=== PATIENT | female | born 1965 | race Caucasian/White ===

== ENCOUNTER 2020-07-04 15:50 | Emergency (ER) | payer MEDICARE, MEDICAID, SELFPAY ==
[2020-07-04 15:59] VITALS: BP 132/65; PULSE 69; RESP 18; TEMP 36.9; O2SAT 96; BMI 25.6
--- NOTE | 2020-07-04 17:29 | W.ED.BACK ---
HPI - Back Pain/Injury General: Chief Complaint: Back Pain/Injury Stated Complaint: hip pain/ neck pain needs pain management Time Seen by Provider: 07/04/20 17:00 History of Present Illness: HPI Narrative: 54-year-old female patient presents to the emergency department with longstanding history of chronic back pain. She reports 2 weeks ago, receives lumbar spinal injection for back pain. She states lidocaine injection was not effective. Reports pain has continued. States out of tramadol, hydrocodone 10/325 and diazepam. She is under the care of Dr. Najera in [place]. She states attempted to contact him this morning, states he was out of town and not able to prescribe her needed medication. She denies change in pain. Reports pain has continued. Has attempted [id number] Tylenol, [id number] pain patches, warm moist heat, cool compresses and rest. She denies urinary/bowel incontinence. Reports symptoms of left lower extremity radiculopathy. She has not fell, has not sustained recent injury. Pain has not changed. She denies fever or chills. MD elicited complaint: back pain Pertinent past history: prior back pain Onset (ago): year(s) Timing: intermittent and progressively worsening Severity: moderate Similar Symptoms Previously: Yes Quality: sharp, aching and spasming Location: lumbar spine, sacrum and left lower back Radiation: left upper leg and left leg below the knee Exacerbating factors: movement, walking and lifting Relieving factors: other (rest) Associated symptoms: Reports difficulty walking (due to left posterior hip pain); Deny abdominal pain, chills, dysuria, fever(s), nausea or vomiting Treatments prior to arrival: cold therapy, heat therapy and acetaminophen Review of Systems General: Reports: 10 or more systems reviewed and unremarkable except in HPI and below Const: Denies: fever(s), chills or diaphoresis Eyes: Denies: blurry vision or eye redness ENMT: Denies: throat pain, dental pain or disequilibrium Card: Denies: chest pain, palpitations or irregular heart rhythm Resp: Denies: dyspnea, productive cough, non-productive cough or wheezing GI: Denies: abdominal pain, nausea or vomiting : Denies: difficulty voiding or dysuria Musc: Reports: limited range of motion (lower back); Denies: neck pain, back pain, joint pain or muscle weakness Skin/Breast: Denies: rash or pruritus Neuro: Reports: difficulty walking (due to left posterior hip pain); Denies: headache(s), weakness in extremities or behavioral changes Psych: Denies: anxiety or depression Ady/Lymph: Denies: easy bruising Physical Exam Const: COMMON NORMALS: no acute distress, patient oriented x3, healthy appearing and alert GENERAL APPEARANCE: cooperative, comfortable and well hydrated HENMT: COMMON NORMALS: normocephalic, Normal external nose present and moist oral mucous membranes HEAD & SCALP: normocephalic NOSE: Normal external nose present Eye: COMMON NORMALS: Equal, round and reactive pupils present and EOMs intact bilaterally GENERAL EYE: appearance normal, both eyes and all related structures PUPIL: Yes Equal, round and reactive pupils present Neck/C-Spine: COMMON NORMALS: full ROM and no lymphadenopathy GENERAL: Yes normal visual inspection and Yes trachea midline CERVICAL SPINE: Yes cervical ROM normal Lymph: LYMPHATIC: no lymphadenopathy noted Chest: COMMONS NORMALS: normal inspection of the chest Resp: COMMON NORMALS: normal respiratory effort and clear to auscultation bilaterally AUSCULTATION: clear to auscultation bilaterally Cardio: COMMON NORMALS: regular rhythm, S1 normal heart sound present, S2 normal heart sound present and Peripheral pulses 2+ throughout RHYTHM: regular rhythm HEART SOUNDS: S1 normal heart sound present and S2 normal heart sound present PERIPHERAL PULSES: Peripheral pulses 2+ throughout GI: COMMON NORMALS: Soft to palpation and non-tender INSPECTION: Yes normal to inspection PALPATION: Yes Soft to palpation : COMMON NORMALS: Yes no CVA tenderness BLADDER/KIDNEY EXAM: Yes no CVA tenderness Back/Pelvis: COMMON NORMALS: no CVA tenderness, thoracic and lumbar spine normal to inspection and no thoracic nor lumbar tenderness (midline) THORACIC SPINE/UPPER BACK: Yes normal to inspection, Yes thoracic ROM normal, No pain with ROM and No thoracic spinal tenderness LUMBAR SPINE/LOWER BACK: Yes normal to inspection, No lumbar spinal tenderness, Yes paraspinal muscle spasm Lumbar paraspinal muscle spasm: left, No mass present, Yes straight leg raise positive left and Yes other soft tissue findings (skin without discoloration/erythema or SQ inflammation of the thoracic/lumbar spine) PELVIS: Yes buttocks normal and Yes Other pelvic findings (Patient sitting in bed with visual lumbar rotation right to left as she was retrieving paperwork.) SACROILIAC JOINTS: Yes SI joint(s) abnormal SI joint details: tender to palpation, pain elicited by compression of iliac crest maneuver (left) and pain elicited by passive hyperextension of lower extremity SACRUM: no ecchymosis COCCYX: no swelling and Other pelvic findings (Patient sitting in bed with visual lumbar rotation right to left as she was retrieving paperwork.) Extremity: COMMON NORMALS: normal to inspection and capillary refill normal Neuro: TAVO COMA SCALE: document GCS findings [place] coma scale eye opening: Spontaneous Tavo coma scale verbal response: Orientated Tavo coma scale motor response: Obey commands [place] coma scale total score: 15 COMMON NORMALS: patient oriented x3 and no focal motor deficits SENSORIUM/ORIENTATION: Yes alert SPEECH: speech normal MONOFILAMENT EXAM PERFORMED: Yes Monofilament Exam (small fiber function): L 1st metatarsals: normal, Left 3rd metatarsals monofilament exam: normal, L 5th metatarsals: normal, R 1st metatarsals: normal, R 3rd metatarsals: normal and R 5th metatarsals: normal MOTOR EXAM: Abnormal motor strength present (5/5 RLE; 4/5 LLE (limited due to reproduction of pain to the left posterior SI joint)) Psych: COMMON NORMALS: mental status grossly normal, Normal thought process present and cooperative ACTIVITY/MOTOR BEHAVIOR: Yes appropriate eye contact THOUGHT PROCESS: Normal thought process present Skin: COMMON NORMALS: no rashes or lesions noted and turgor normal GENERAL SKIN EXAM: no rashes or lesions noted and turgor normal Course ED course: Case discussed with Dr. Dillon, advised limited amount of hydrocodone, #7, signed prescription provided. MRI reviewed from 01/02/2020 with degenerative disc disease and spondylosis. L4-L5 central zone disc protrusion and facet joint arthropathy, moderate vertebral canal and lateral recess stenosis, effacement of bilateral L5 nerve roots. L5-S1 moderate left neural foraminal stenosis, hypertrophic facet arthropathy lumbar spine most predominant at L5-S1 and L5-S1. [facility] report from [facility]. Patient reports able to contact Dr. Najera on Tuesday for needed refill of medication. She was advised to return to the emergency department if she developed fever, inability to feel her legs, bowel or bladder incontinence or other worsening symptoms. Verbalized understanding. Agrees to follow-up and to return if concerning symptoms occur. Vital Signs: Vital signs: Vital Signs Temperature 98.4 F 07/04/20 15:59 Pulse Rate 69 07/04/20 15:59 Respiratory Rate 18 07/04/20 15:59 Blood Pressure 132/65 07/04/20 15:59 Pulse Oximetry 96 07/04/20 15:59 Discharge Plan Discharge Patient Disposition: Home Clinical Impression: Lumbar radiculopathy Strain of lumbar region Qualifiers: Encounter type: initial encounter Qualified Code(s): S39.012A - Strain of muscle, fascia and tendon of lower back, initial encounter Chronic lumbar pain Qualifiers: Back pain laterality: left Sciatica presence: with sciatica Sciatica laterality: sciatica of left side Qualified Code(s): M54.42 - Lumbago with sciatica, left side Condition: Stable Prescriptions: New Medrol (Chema) 4 mg tablets,dose pack See Rx Instructions .ROUTE .COMPLEX Qty: 21 RF: 0 cyclobenzaprine 10 mg tablet 10 mg PO TID PRN (Reason: muscle spasm) Qty: 20 RF: 0 Lidoderm 5 % adhesive patch,medicated 1 patch TOPICAL Q24H Qty: 30 RF: 0 hydrocodone-acetaminophen 5-325 mg tablet 1 tab PO TID PRN (Reason: pain) Qty: 7 RF: 0 No Action Tylenol 325 mg Tablet 325 - 650 mg PO Q4H PRN (Reason: Pain) RF: 0 clonazepam 0.5 mg tablet 0.5 mg PO DAILY RF: 0 tramadol 50 mg tablet 50 mg PO Q4H PRN (Reason: Pain) RF: 0 citalopram 20 mg tablet 20 mg PO DAILY RF: 0 ibuprofen 200 mg Tablet 200 - 400 mg PO Q4H PRN (Reason: Pain) RF: 0 Excedrin Extra Strength 250-250-65 mg Tablet 1 - 2 tab PO Q4H PRN (Reason: Pain) RF: 0 levocetirizine 5 mg tablet 5 mg PO DAILY RF: 0 Discharge Orders: Discharge Order (Routine); Ordered 07/04/20 Ordered By: Lupe Peck Referrals: Reji Gutierrez MD [Physician] - Discharge Diet: Usual diet Discharge Activity: Limit activity as instructed Patient Instructions: Sciatica (ED), Lumbar Radiculopathy (ED), Chronic Back Pain (ED) Activity Restrictions/Additional Instructions: Cool compresses alternate with warm moist heat as needed for pain, apply to the affected area Call your doctor on Tuesday for continuation of pain medication. The emergency department will not be able to refill controlled substances for chronic pain. Return to the emergency department if you develop bowel or bladder incontinence, inability to feel your left leg, or falls due to bilateral leg weakness Avoid twisting or bending, do not lift over 10 pounds until released by your primary care/back specialist Take medication as prescribed Discharge Date/Time: 07/04/20 18:03 Coding Level of Care Code ED German Teacher for Jerry Kerr
[2020-07-04] MEDS: ketorolac 60 mg/2 mL INJ IM (17:58)
== END 2020-07-04 18:03 | disposition home or self-care (01) ==
PROVIDERS: Absent Provider Neurological Surgery; Emergency Provider Nurse Practitioner Family; PCP Family Medicine
DX: S39.012A Strain of muscle, fascia and tendon of lower back, initial encounter (principal); M54.16 Radiculopathy, lumbar region; G89.29 Other chronic pain; M54.42 Lumbago with sciatica, left side; X58.XXXA Exposure to other specified factors, initial encounter
CPT/HCPCS: 12345; 96372; 99281; 99283; J1885

== ENCOUNTER → 2020-07-10 10:02 | Outpatient (BNVA) | payer MEDICARE, MEDICAID, SELFPAY | PROVIDERS: Family Provider Family Medicine; PCP Family Medicine; Referring Provider Family Medicine; Visit Provider Anesthesiology Pain Medicine | DX: G89.29 Other chronic pain (principal); M54.12 Radiculopathy, cervical region; M54.42 Lumbago with sciatica, left side; F17.210 Nicotine dependence, cigarettes, uncomplicated | CPT/HCPCS: 99203 ==

== ENCOUNTER 2020-09-27 04:01 | Emergency (ER) | payer MEDICARE, MEDICAID, SELFPAY ==
[2020-09-27 04:04] VITALS: BP 158/87; PULSE 63; RESP 18; TEMP 36.7; O2SAT 100; BMI 22.8
--- NOTE | 2020-09-27 04:16 | ED_ITS ---
HPI - Back Pain/Injury General: Chief Complaint: Back Pain/Injury Stated Complaint: lower back pain Time Seen by Provider: 09/27/20 04:03 Source: patient Mode of arrival: ambulatory Limitations: no limitations History of Present Illness: HPI Narrative: 55-year-old female who has a history of chronic back pain. She states that she had an MRI recently showed degenerative disc disease in her lower back. She states that tonight she was not able to stand her pain. States pain is a 9 out of 10 and radiates down her left leg. She denies any bowel or bladder incontinence. She states she has an appointment with a spine surgeon in early October. Denies any worsening improving factors. MD elicited complaint: back pain Pertinent past history: prior back pain Associated symptoms: Deny abdominal pain, chills, dysuria, fever(s), nausea or vomiting Review of Systems Const: Denies: fever(s), chills, body aches or change in appetite Eyes: Denies: blurry vision or eye discomfort ENMT: Denies: throat pain or dental pain Card: Denies: chest pain Resp: Denies: dyspnea GI: Denies: abdominal pain, nausea, vomiting or diarrhea : Denies: dysuria Musc: Reports: back pain Skin/Breast: Denies: rash Neuro: Denies: headache(s) Psych: Denies: depression Ady/Lymph: Denies: easy bruising All/Imm: Denies: urticaria PFSH ED PFSH: Social History Smoking and tobacco status: current every day smoker cigarettes Alcohol intake: never Caregiver/support person: Yes Lives independently: Yes Household members: spouse Housing: House Physical Exam Const: COMMON NORMALS: no acute distress, patient oriented x3 and healthy appearing HENMT: COMMON NORMALS: normocephalic and atraumatic HEAD & SCALP: normocephalic and atraumatic Eye: COMMON NORMALS: Equal, round and reactive pupils present and EOMs intact bilaterally PUPIL: Yes Equal, round and reactive pupils present Neck/C-Spine: COMMON NORMALS: full ROM and supple Chest: COMMONS NORMALS: normal inspection of the chest and normal palpation of entire chest wall Resp: COMMON NORMALS: normal respiratory effort, No retractions, No use of accessory muscles and clear to auscultation bilaterally AUSCULTATION: clear to auscultation bilaterally Cardio: COMMON NORMALS: regular rate, regular rhythm and No murmurs present (Cardio) RATE: regular rate RHYTHM: regular rhythm GI: COMMON NORMALS: Normal to inspection, nondistended, normoactive bowel sounds present, Soft to palpation, non-tender and no masses PALPATION: Yes Soft to palpation Back/Pelvis: OTHER: Left lower back tenderness no midline tenderness no saddle anesthesia 5 out of 5 strength of bilateral lower extremities Extremity: COMMON NORMALS: normal to inspection and full ROM Neuro: COMMON NORMALS: patient oriented x3, moves all extremities and no focal motor deficits Psych: COMMON NORMALS: mental status grossly normal, Normal thought process present and cooperative THOUGHT PROCESS: Normal thought process present Skin: COMMON NORMALS: no rashes or lesions noted and no wounds GENERAL SKIN EXAM: no rashes or lesions noted Course Vital Signs: Vital signs: Vital Signs Temperature 98.1 F 09/27/20 04:04 Pulse Rate 63 09/27/20 04:04 Respiratory Rate 18 09/27/20 04:04 Blood Pressure 158/87 09/27/20 04:04 Pulse Oximetry 100 09/27/20 04:04 MDM - Back Pain/Injury MDM Narrative: Medical decision making narrative: Patient presents here with chronic low back pain. She has no signs of cord compression or epidural abscess. She has no bowel or bladder incontinence and no saddle anesthesia. She feels much improved here after pain meds. We will place her on a Medrol Dosepak and [place]. She has an appointment with pain management in 1 to 2 weeks along with a spine surgeon. She is to follow-up then return if worsening. She understands agrees to plan. Discharge Plan Discharge Patient Disposition: Home Clinical Impression: Chronic low back pain Qualifiers: Back pain laterality: left Sciatica presence: with sciatica Sciatica laterality: sciatica of left side Qualified Code(s): M54.42 - Lumbago with sciatica, left side Condition: Stable Prescriptions: New [place] 5-325 mg tablet 1 tab PO Q6H PRN (Reason: pain) Qty: 14 RF: 0 Medrol (Chema) 4 mg tablets,dose pack See Rx Instructions .ROUTE .COMPLEX Qty: 21 RF: 0 No Action calcium carbonate [Calcium 600] 600 mg calcium (1,500 mg) tablet 600 mg PO BID RF: 0 mecobalamin (vitamin B12) 1,000 mcg tablet,disintegrating 1,000 mcg SUBLINGUAL DAILY RF: 0 Dialyvite Vitamin D3 Max 1,250 mcg (50,000 unit) tablet PO RF: 0 ibuprofen 800 mg tablet 800 mg PO Q8H RF: 0 diphenhydramine HCl [Benadryl Allergy] 25 mg tablet 25 mg PO Q6H PRNRF: 0 acyclovir 400 mg tablet 400 mg PO DAILY RF: 0 ondansetron HCl 4 mg tablet 4 mg PO Q8H RF: 0 cyclobenzaprine 10 mg tablet 10 mg PO TID PRN (Reason: muscle spasm) Qty: 20 RF: 0 Tylenol 325 mg Tablet 325 - 650 mg PO Q4H PRN (Reason: Pain) RF: 0 clonazepam 0.5 mg tablet 0.5 mg PO DAILY RF: 0 tramadol 50 mg tablet 50 mg PO Q4H PRN (Reason: Pain) RF: 0 citalopram 20 mg tablet 20 mg PO DAILY RF: 0 ibuprofen 200 mg Tablet 200 - 400 mg PO Q4H PRN (Reason: Pain) RF: 0 Excedrin Extra Strength 250-250-65 mg Tablet 1 - 2 tab PO Q4H PRN (Reason: Pain) RF: 0 levocetirizine 5 mg tablet 5 mg PO DAILY RF: 0 Lidoderm 5 % adhesive patch,medicated 1 patch TOPICAL Q24H Qty: 30 RF: 0 hydrocodone-acetaminophen 5-325 mg tablet 1 tab PO TID PRN (Reason: pain) Qty: 7 RF: 0 Discharge Orders: Discharge ED (Routine); Ordered 09/27/20 Ordered By: John Galdamez Referrals: Keith Sultana MD [Primary Care Provider] - 1-3 days Discharge Diet: Advance as tolerated Discharge Activity: Resume usual activity Patient Instructions: Acute Low Back Pain (ED) Coding Level of Care Code ED Pediatric Medical Assistant for Jerry Fwd Exam Comprehensive
[2020-09-27] MEDS: dexamethasone 10 mg/mL INJ IM (04:18)
[2020-09-27] MEDS: morphine 4 mg/mL SDV 1 mL IM (04:18)
[2020-09-27] MEDS: HYDROcodone-acetaminophen 5-325 mg Tablet 1 TAB PO (05:08)
[2020-09-27 05:09] VITALS: BP 155/84; PULSE 60; RESP 17; O2SAT 99
== END 2020-09-27 05:09 | disposition home or self-care (01) ==
PROVIDERS: Emergency Provider Emergency Medicine; PCP Family Medicine
DX: M54.42 Lumbago with sciatica, left side (principal); F17.210 Nicotine dependence, cigarettes, uncomplicated
CPT/HCPCS: 12345; 96372; 99281; 99283; J1100; J2270

== ENCOUNTER 2020-10-01 04:36 | Emergency (ER) | payer MEDICARE, MEDICAID, SELFPAY ==
--- NOTE | 2020-10-01 04:46 | ED_ITS ---
HPI - Back Pain/Injury General: Chief Complaint: Back Pain/Injury Stated Complaint: back pain Time Seen by Provider: 10/01/20 04:43 Source: patient Mode of arrival: ambulatory Limitations: no limitations History of Present Illness: HPI Narrative: 55-year-old female has a history of chronic low back pain from degenerative disc disease. Patient has appoint with pain management October 20 states she has had increased pain over the last 2 days. States pain is sharp in nature and rates it a 7 out of 10. Denies any radiation of her pain. Denies any bowel or bladder incontinence. Denies any vomiting. MD elicited complaint: back pain Associated symptoms: Deny abdominal pain, chills, dysuria, fever(s), nausea or vomiting Review of Systems Const: Denies: fever(s), chills, body aches or change in appetite Eyes: Denies: blurry vision or eye discomfort ENMT: Denies: throat pain or dental pain Card: Denies: chest pain Resp: Denies: dyspnea GI: Denies: abdominal pain, nausea, vomiting or diarrhea : Denies: dysuria Musc: Reports: back pain Skin/Breast: Denies: rash Neuro: Denies: headache(s) Psych: Denies: depression Ady/Lymph: Denies: easy bruising All/Imm: Denies: urticaria PFSH ED PFSH: Social History Smoking and tobacco status: current every day smoker cigarettes Alcohol intake: never Caregiver/support person: Yes Lives independently: Yes Household members: spouse Housing: House Physical Exam Const: COMMON NORMALS: no acute distress, patient oriented x3 and healthy appearing HENMT: COMMON NORMALS: normocephalic and atraumatic HEAD & SCALP: normocephalic and atraumatic Eye: COMMON NORMALS: Equal, round and reactive pupils present and EOMs intact bilaterally PUPIL: Yes Equal, round and reactive pupils present Neck/C-Spine: COMMON NORMALS: full ROM and supple Chest: COMMONS NORMALS: normal inspection of the chest and normal palpation of entire chest wall Resp: COMMON NORMALS: normal respiratory effort, No retractions, No use of accessory muscles and clear to auscultation bilaterally AUSCULTATION: clear to auscultation bilaterally Cardio: COMMON NORMALS: regular rate, regular rhythm and No murmurs present (Cardio) RATE: regular rate RHYTHM: regular rhythm GI: COMMON NORMALS: Normal to inspection, nondistended, normoactive bowel sounds present, Soft to palpation, non-tender and no masses PALPATION: Yes Soft to palpation Back/Pelvis: OTHER: Paraspinal low back tenderness with no midline tenderness no saddle anesthesia 5 out of 5 strength bilateral extremities Extremity: COMMON NORMALS: normal to inspection and full ROM Neuro: COMMON NORMALS: patient oriented x3, moves all extremities and no focal motor deficits Psych: COMMON NORMALS: mental status grossly normal, Normal thought process present and cooperative THOUGHT PROCESS: Normal thought process present Skin: COMMON NORMALS: no rashes or lesions noted and no wounds GENERAL SKIN EXAM: no rashes or lesions noted Course Vital Signs: Vital signs: Vital Signs Temperature 97.7 F 10/01/20 04:47 Pulse Rate 66 10/01/20 04:47 Respiratory Rate 18 10/01/20 04:47 Blood Pressure 135/95 10/01/20 04:47 Pulse Oximetry 100 10/01/20 04:47 MDM - Back Pain/Injury MDM Narrative: Medical decision making narrative: Mary presents here with back pain that is chronic in nature. She has no signs of cord compression or epidural abscess. She has had a recent MRI as well. She is to follow-up with spine surgeon as scheduled along with her pain management in 2 weeks. Will prescribe her Naprosyn and Robaxin and she is to return if worsening. She understands agrees to plan. Discharge Plan Discharge Patient Disposition: Home Clinical Impression: Chronic low back pain Qualifiers: Back pain laterality: bilateral Sciatica presence: without sciatica Qualified Code(s): M54.5 - Low back pain Condition: Stable Prescriptions: New Robaxin-750 750 mg tablet 750 mg PO Q6H Qty: 30 RF: 0 Naprosyn 500 mg tablet 500 mg PO BID PRN (Reason: pain) Qty: 20 RF: 0 cyclobenzaprine 10 mg tablet 10 mg PO Q8H PRN (Reason: muscle spasm) Qty: 30 RF: 0 tramadol 50 mg tablet 50 mg PO Q8H PRN (Reason: pain) Qty: 20 RF: 0 No Action calcium carbonate [Calcium 600] 600 mg calcium (1,500 mg) tablet 600 mg PO BID RF: 0 mecobalamin (vitamin B12) 1,000 mcg tablet,disintegrating 1,000 mcg SUBLINGUAL DAILY RF: 0 Dialyvite Vitamin D3 Max 1,250 mcg (50,000 unit) tablet PO RF: 0 ibuprofen 800 mg tablet 800 mg PO Q8H RF: 0 diphenhydramine HCl [Benadryl Allergy] 25 mg tablet 25 mg PO Q6H PRNRF: 0 acyclovir 400 mg tablet 400 mg PO DAILY RF: 0 ondansetron HCl 4 mg tablet 4 mg PO Q8H RF: 0 cyclobenzaprine 10 mg tablet 10 mg PO TID PRN (Reason: muscle spasm) Qty: 20 RF: 0 Tylenol 325 mg Tablet 325 - 650 mg PO Q4H PRN (Reason: Pain) RF: 0 clonazepam 0.5 mg tablet 0.5 mg PO DAILY RF: 0 tramadol 50 mg tablet 50 mg PO Q4H PRN (Reason: Pain) RF: 0 citalopram 20 mg tablet 20 mg PO DAILY RF: 0 ibuprofen 200 mg Tablet 200 - 400 mg PO Q4H PRN (Reason: Pain) RF: 0 Excedrin Extra Strength 250-250-65 mg Tablet 1 - 2 tab PO Q4H PRN (Reason: Pain) RF: 0 levocetirizine 5 mg tablet 5 mg PO DAILY RF: 0 Lidoderm 5 % adhesive patch,medicated 1 patch TOPICAL Q24H Qty: 30 RF: 0 hydrocodone-acetaminophen 5-325 mg tablet 1 tab PO TID PRN (Reason: pain) Qty: 7 RF: 0 [place] 5-325 mg tablet 1 tab PO Q6H PRN (Reason: pain) Qty: 14 RF: 0 Medrol (Chema) 4 mg tablets,dose pack See Rx Instructions .ROUTE .COMPLEX Qty: 21 RF: 0 Discharge Orders: Discharge ED (Routine); Ordered 10/01/20 Ordered By: John Galdamez Referrals: Keith Sultana MD [Primary Care Provider] - 1-3 days Discharge Diet: Advance as tolerated Discharge Activity: Resume usual activity Patient Instructions: Back Pain (ED) Coding Level of Care Code ED Communications Operator for Chg Fwd Exam Comprehensive
[2020-10-01 04:47] VITALS: BP 135/95; PULSE 66; RESP 18; TEMP 36.5; O2SAT 100; BMI 22.8
[2020-10-01] MEDS: ketorolac 30 mg/mL INJ IM (04:55)
[2020-10-01] MEDS: morphine 4 mg/mL SDV 1 mL IM (04:55)
[2020-10-01] MEDS: HYDROcodone-acetaminophen 5-325 mg Tablet 1 TAB PO (05:37)
[2020-10-01] MEDS: cyclobenzaprine 10 mg Tablet PO (05:37)
== END 2020-10-01 05:39 | disposition home or self-care (01) ==
PROVIDERS: Emergency Provider Emergency Medicine; PCP Family Medicine
DX: G89.29 Other chronic pain (principal); M54.5 Low back pain; F17.210 Nicotine dependence, cigarettes, uncomplicated
CPT/HCPCS: 12345; 96372; 99281; 99283; J1885; J2270

== ENCOUNTER 2020-10-04 21:26 | Emergency (ER) | payer MEDICARE, MEDICAID, SELFPAY ==
[2020-10-04 21:50] VITALS: BP 110/52; PULSE 88; RESP 14; TEMP 36.3; O2SAT 97; BMI 21.1
[2020-10-04] MEDS: methylPREDNISolone (DEPO) 80 MG/ML INJ 1 mL IM (22:20)
--- NOTE | 2020-10-05 02:20 | ED_ITS ---
HPI - Back Pain/Injury General: Chief Complaint: Back Pain/Injury Stated Complaint: back pain Time Seen by Provider: 10/04/20 21:58 History of Present Illness: HPI Narrative: Patient coming in requesting pain medication for her back said she like to have steroid. Says she still has some muscle relaxer hydrocodone and tramadol at home. Says she is supposed to see primary care provider on Tuesday. Says she does see Mely Thornton and try to get a referral to the pain management clinic here she does have referral already to pain management clinic in [place] which she supposed to have appointment on the MD elicited complaint: back pain Pertinent past history: prior back pain Onset (ago): year(s) Timing: intermittent Severity: moderate Similar Symptoms Previously: Yes Quality: aching Location: lumbar spine Radiation: right upper leg and right leg below the knee Exacerbating factors: movement Relieving factors: medication Associated symptoms: Reports no associated symptoms; Deny abdominal pain, chills, fever(s), nausea or vomiting Treatments prior to arrival: prescription analgesics Review of Systems Const: Denies: fever(s), chills or body aches Eyes: Denies: change in vision or blurry vision ENMT: Denies: throat pain or nasal congestion Card: Denies: chest pain or dyspnea on exertion Resp: Denies: dyspnea, productive cough or non-productive cough GI: Denies: abdominal pain, nausea or vomiting Musc: Reports: back pain; Denies: extremity pain Skin/Breast: Denies: rash Neuro: Denies: headache(s) Psych: Denies: anxiety or depression Ady/Lymph: Denies: easy bruising PFS ED PFSH: Social History Smoking and tobacco status: current every day smoker cigarettes Alcohol intake: never Caregiver/support person: Yes Lives independently: Yes Household members: spouse Housing: House Physical Exam Const: COMMON NORMALS: average body habitus Resp: COMMON NORMALS: normal respiratory effort GI: INSPECTION: Yes normal to inspection Extremity: COMMON NORMALS: normal to inspection Course Vital Signs: Vital signs: Vital Signs Temperature 97.3 F L 10/04/20 21:50 Pulse Rate 88 10/04/20 21:50 Respiratory Rate 14 10/04/20 21:50 Blood Pressure 110/52 10/04/20 21:50 Pulse Oximetry 97 10/04/20 21:50 MDM - Back Pain/Injury MDM Narrative: Medical decision making narrative: I asked the patient and her if they were needing medications they told me know that they just one steroid. Offered her steroid pills and she said she wanted shot. I gave her shot then she has for steroid pills follow-up with which I provided prescription. And on discharge patient is requesting muscle relaxers. Had nurse informed that they said already had muscle relaxers that we were going to provide any more. They also had pain medication home were not going to provide any more. And follow-up on Tuesday with her primary care provider did extend prescription. Discharge Plan Discharge Patient Disposition: Home Clinical Impression: Chronic low back pain Condition: Stable Prescriptions: New Medrol (Chema) 4 mg tablets,dose pack See Rx Instructions .ROUTE .COMPLEX Qty: 21 RF: 0 prednisone 20 mg tablet 20 mg PO DAILY 11 Days Qty: 11 RF: 0 Discontinued methylprednisolone [Medrol (Chema)] 4 mg tablets,dose pack See Rx Instructions .ROUTE .COMPLEX Qty: 21 RF: 0 No Action calcium carbonate [Calcium 600] 600 mg calcium (1,500 mg) tablet 600 mg PO BID RF: 0 mecobalamin (vitamin B12) 1,000 mcg tablet,disintegrating 1,000 mcg SUBLINGUAL DAILY RF: 0 Dialyvite Vitamin D3 Max 1,250 mcg (50,000 unit) tablet PO RF: 0 ibuprofen 800 mg tablet 800 mg PO Q8H RF: 0 diphenhydramine HCl [Benadryl Allergy] 25 mg tablet 25 mg PO Q6H PRNRF: 0 acyclovir 400 mg tablet 400 mg PO DAILY RF: 0 ondansetron HCl 4 mg tablet 4 mg PO Q8H RF: 0 Robaxin-750 750 mg tablet 750 mg PO Q6H Qty: 30 RF: 0 Naprosyn 500 mg tablet 500 mg PO BID PRN (Reason: pain) Qty: 20 RF: 0 cyclobenzaprine 10 mg tablet 10 mg PO Q8H PRN (Reason: muscle spasm) Qty: 30 RF: 0 tramadol 50 mg tablet 50 mg PO Q8H PRN (Reason: pain) Qty: 20 RF: 0 cyclobenzaprine 10 mg tablet 10 mg PO TID PRN (Reason: muscle spasm) Qty: 20 RF: 0 Tylenol 325 mg Tablet 325 - 650 mg PO Q4H PRN (Reason: Pain) RF: 0 clonazepam 0.5 mg tablet 0.5 mg PO DAILY RF: 0 tramadol 50 mg tablet 50 mg PO Q4H PRN (Reason: Pain) RF: 0 citalopram 20 mg tablet 20 mg PO DAILY RF: 0 ibuprofen 200 mg Tablet 200 - 400 mg PO Q4H PRN (Reason: Pain) RF: 0 Excedrin Extra Strength 250-250-65 mg Tablet 1 - 2 tab PO Q4H PRN (Reason: Pain) RF: 0 levocetirizine 5 mg tablet 5 mg PO DAILY RF: 0 Lidoderm 5 % adhesive patch,medicated 1 patch TOPICAL Q24H Qty: 30 RF: 0 hydrocodone-acetaminophen 5-325 mg tablet 1 tab PO TID PRN (Reason: pain) Qty: 7 RF: 0 Enterprise 5-325 mg tablet 1 tab PO Q6H PRN (Reason: pain) Qty: 14 RF: 0 Discharge Orders: Discharge ED (Routine); Ordered 10/04/20 Ordered By: Umesh Reyes Discharge Diet: Usual diet Discharge Activity: Increase activity as tolerated Patient Instructions: Sciatica (ED) Activity Restrictions/Additional Instructions: Follow-up with medical provider as directed. Take medications as prescribed. Return to the ER or your medical provider if condition worsens. Please read and understand discharge instructions. If any questions ask please. Mely Thornton on Tuesday as scheduled. See about getting a referral to pain management here in [facility]. Coding Level of Care Code ED Set Making Machine Operator for Jerry Kerr
== END 2020-10-04 22:31 | disposition home or self-care (01) ==
PROVIDERS: Emergency Provider Nurse Practitioner Family
DX: G89.29 Other chronic pain (principal); M54.5 Low back pain; F17.210 Nicotine dependence, cigarettes, uncomplicated
CPT/HCPCS: 12345; 96372; 99281; 99283; J1040

== ENCOUNTER 2020-10-13 02:51 | Emergency (ER) | payer MEDICARE, MEDICAID, SELFPAY ==
[2020-10-13 02:56] VITALS: BP 124/69; PULSE 75; RESP 18; TEMP 36.2; O2SAT 98; BMI 29.2
--- NOTE | 2020-10-13 03:22 | XRR_ITS ---
PROCEDURE INFORMATION: Exam: XR Abdomen, 1 View Exam date and time: 10/13/2020 3:35 AM Age: 55 years old Clinical indication: Other: Abd distension; Prior surgery; Surgery type: Gb, hyst TECHNIQUE: Imaging protocol: XR of the abdomen. Views: Frontal supine view of the abdomen. 1 View. COMPARISON: CR XR KUB [id number] 02/21/2014 4:58 AM FINDINGS: Lungs: Bilateral pulmonary basilar calcified granulomas. Gastrointestinal tract: Unremarkable. No bowel dilation. Organs: The gallbladder is likely surgically absent, with metallic clips overlying the gallbladder fossa. Vasculature: Central right pelvic calcified phlebolith, stable. Bones/joints: Bilateral lower lumbar facet primary osteoarthritis. XR/XR KUB portable [id number] IMPRESSION: 1. No acute abdominal or pelvic abnormality identified. 2. Prior cholecystectomy.
--- NOTE | 2020-10-13 03:27 | W.ED.ABDPA2 ---
HPI - Abdominal Pain General: Chief Complaint: Abdominal Pain Stated Complaint: swollen abdomen Time Seen by Provider: 10/13/20 03:11 History of Present Illness: HPI narrative: 55-year-old female with a history of chronic back pain. She notes increased abdominal swelling and discomfort over the past few days she had a medication change recently as her dose of gabapentin has increased significantly. She takes stool softeners, and MiraLAX for constipation. She noticed that her stools have become thin. No bleeding. No vomiting. No fever. Belly pain is diffuse. She is worried more about the distention. MD elicited complaint: abdominal pain Pertinent past history: constipation Onset (ago): day(s) Pain Consistency: constant Location: Diffuse Severity: moderate Quality: aching and fullness Radiation: none Migration to: no migration Exacerbating factors: movement Relieving factors: nothing Associated Symptoms: Reports change in bowel habits and change in stool character; Denies coffee ground emesis, fever(s), hematochezia, hematuria and melena Review of Systems Const: Denies: fever(s) ENMT: Denies: throat pain or nasal congestion Card: Denies: chest pain, palpitations or dyspnea on exertion Resp: Denies: dyspnea, productive cough, non-productive cough or wheezing GI: Reports: change in bowel habits and change in stool character; Denies: coffee ground emesis, hematochezia or melena : Denies: hematuria Neuro: Denies: headache(s), dizziness or vertigo [facility] ED PFSH: Medical History (Updated 10/13/20 @ 04:48 by Brian Rose DO) Chronic back pain Degenerative disc disease, lumbar Seasonal affective disorder Surgical History (Updated 10/06/20 @ 14:11 by CHASITY Harper) History of cervical spinal surgery October 04, 2019 History of cholecystectomy History of hysterectomy History of tonsillectomy History of tubal ligation Family History Other Cancer Dementia Diabetes Hypertension Stroke Denies family history of Bleeding disorder Social History Smoking and tobacco status: current every day smoker cigarettes Second hand smoke exposure: No Smoking risk assessment/counseling performed?: Yes Alcohol intake: never Desire information about alcohol rehabilitation?: No Counseling given: No Desire information about substance/drug rehabilitation?: No Counseling given: No Adopted: No Caregiver/support person: Yes Lives independently: Yes Household members: significant other Housing: House Marital status: Number of children: 2 service: No Current occupational status: unemployed Pets and animals: No History of recent travel: No Current gender identity: Female Physical Exam Const: COMMON NORMALS: no acute distress and patient oriented x3 HENMT: COMMON NORMALS: normocephalic and Normal external nose present HEAD & SCALP: normocephalic FACE & SINUS: normal facial exam NOSE: Normal external nose present Chest: COMMONS NORMALS: normal inspection of the chest Resp: COMMON NORMALS: normal respiratory effort, No retractions and No use of accessory muscles Cardio: COMMON NORMALS: regular rate and regular rhythm RATE: regular rate RHYTHM: regular rhythm GI: COMMON NORMALS: Soft to palpation INSPECTION: Yes abdominal distension AUSCULTATION: Yes normoactive bowel sounds PALPATION: Yes Soft to palpation, Yes Tenderness to palpation present (GI) (diffuse) and No Rebound tenderness present Extremity: GENERAL: Yes edema (1+ bilat) Neuro: COMMON NORMALS: patient oriented x3 Course Vital Signs: Vital signs: Vital Signs Temperature 97.2 F L 10/13/20 02:56 Pulse Rate 75 10/13/20 02:56 Respiratory Rate 18 10/13/20 02:56 Blood Pressure 124/69 10/13/20 02:56 Pulse Oximetry 98 10/13/20 02:56 MDM - Abdominal Pain MDM Narrative: Medical decision making narrative: 55-year-old female with a recent change in medication and increasing abdominal discomfort and distention. She has had chronic constipation problems in the past. Her CBC is not remarkable. She has a sodium of 129, otherwise BMP and liver enzymes are unremarkable. There is no elevation in CRP. KUB of the belly shows a significant stool load not necessarily with impaction. She will be given a laxative at home Lab Data: Attestation: I reviewed the patient's lab results. Labs: Lab Results 10/13/20 10/13/20 10/13/20 Range/Units 03:50 03:50 04:50 WBC 10.1 H (4.0-10.0) 10^3/ uL RBC 3.48 L (4.1-5.3) 10^6/u L Hgb 11.9 (11.5-15.3) g/dL Hct 35.4 L (37.0-47.0) % MCV 101.7 H (81-99) fL MCH 34.2 H (28.0-34.0) pg MCHC 33.6 (30.0-36.0) g/dL RDW 13.6 (12.1-15.1) % Plt Count 233 (130-400) 10^3/c mm MPV 9.9 (7.4-10.4) fL Neut % (Auto) 54.4 % Lymph % (Auto) 32.3 % [place] % (Auto) 9.9 % Eos % (Auto) 2.1 % Baso % (Auto) 0.6 % Neut # (Auto) 5.51 (1.8-7.7) 10^3/u L Lymph # (Auto) 3.3 (0.8-4.8) 10^3/u L [place] # (Auto) 1.0 H (0.2-0.9) 10^3/u L Eos # (Auto) 0.2 (0.0-0.8) 10^3/u L Baso # (Auto) 0.1 (0.0-0.1) 10^3/u L Nucleated RBC % (a uto) 0 % Nucleated RBCs # 0.0 /100WBC Sodium 129 L (136-145) mmol/L Potassium 4.4 (3.5-5.1) mmol/L Chloride 90 L (98-107) mmol/L Carbon Dioxide 27 (22-29) mmol/L Anion Gap 16.4 (5-19) BUN 11 (6-20) mg/dL Creatinine 0.8 (0.5-0.9) mg/dL GFR Calculation 73.9 L (90-130) mL/min Glucose 65 (65-115) mg/dL Calculated Osmolal ity 266 L (285-295) mOsm/k g Calcium 9.2 (8.5-10.5) mg/dL Total Bilirubin 0.2 (0.15-1.2) mg/dL AST 16 (0-32) U/L ALT 25 (0-33) U/L Alkaline Phosphata se 64 (35-105) IU/L C-Reactive Protein 0.3 (0.0-4.9) mg/L Total Protein 7.0 (6.6-8.7) g/dL Albumin 4.1 (3.5-5.2) g/dL Globulin 2.9 (1.3-4.6) g/dL Lipase 23 (13-60) U/L Urine Color Straw (Yellow) Urine Appearance Clear (CLEAR) Urine pH 7 (5-7) Ur Specific Gravit y 1.010 (1.005-1.030) Urine Protein Neg (Negative) Urine Glucose (UA) Norm (Normal) Urine Ketones Negative (Negative) Urine Blood Neg (Negative) Urine Nitrate Negative (Negative) Urine Bilirubin Neg (Negative) Urine Urobilinogen Norm (Negative) mg/dL Ur Leukocyte Brandie ase Negative (Negative) Discharge Plan Discharge Patient Disposition: Home Clinical Impression: Constipation Qualifiers: Constipation type: drug induced constipation Qualified Code(s): K59.03 - Drug induced constipation Condition: Stable Prescriptions: No Action cyclobenzaprine 10 mg tablet 10 mg PO Q8H 30 Days Qty: 90 RF: 0 clonazepam 0.5 mg tablet 0.5 mg PO DAILY Qty: 30 RF: 2 tramadol 50 mg tablet 50 mg PO TID Qty: 90 RF: 2 cholecalciferol (vitamin D3) 125 mcg (5,000 unit) capsule 125 mcg PO DAILY Qty: 30 RF: 2 calcium carbonate [Calcium 600] 600 mg calcium (1,500 mg) tablet 600 mg PO BID RF: 0 mecobalamin (vitamin B12) 1,000 mcg tablet,disintegrating 1,000 mcg SUBLINGUAL DAILY RF: 0 ibuprofen 800 mg tablet 800 mg PO Q8H RF: 0 diphenhydramine HCl [Benadryl Allergy] 25 mg tablet 25 mg PO Q6H PRNRF: 0 acyclovir 400 mg tablet 400 mg PO DAILY RF: 0 ondansetron HCl 4 mg tablet 4 mg PO Q8H RF: 0 gabapentin 600 mg tablet 600 mg PO TID Qty: 90 RF: 2 Naprosyn 500 mg tablet 500 mg PO BID PRN (Reason: pain) Qty: 20 RF: 0 Tylenol 325 mg Tablet 325 - 650 mg PO Q4H PRN (Reason: Pain) RF: 0 citalopram 20 mg tablet 20 mg PO DAILY RF: 0 Excedrin Extra Strength 250-250-65 mg Tablet 1 - 2 tab PO Q4H PRN (Reason: Pain) RF: 0 levocetirizine 5 mg tablet 5 mg PO DAILY RF: 0 Medrol (Chema) 4 mg tablets,dose pack See Rx Instructions .ROUTE .COMPLEX Qty: 21 RF: 0 prednisone 20 mg tablet 20 mg PO DAILY 11 Days Qty: 11 RF: 0 Hold Instructions: Medication Not Effective Discharge Orders: Discharge ED (Routine); Ordered 10/13/20 Ordered By: Brian Rose Referrals: Mely Thornton, MERCHANDISE ADJUSTMENT CLERK-C [Primary Care Provider] - Discharge Diet: Advance as tolerated and Clear Liquid Discharge Activity: Increase activity as tolerated Patient Instructions: Constipation (ED) Activity Restrictions/Additional Instructions: Return for fever greater than 100, worsening pain despite treatment, worsening distention despite treatment, significant blood in the stool, vomiting, other concerning symptoms. Coding Level of Care Code ED Glass Laminating Operator for Jerry Fwd Exam Detailed
[2020-10-13 03:53] LABS: Basophils # 0.1 10^3/uL (0.0-0.1); Basophils % 0.6 %; Eosinophils # 0.2 10^3/uL (0.0-0.8); Eosinophils % 2.1 %; Hematocrit 35.4 % (37.0-47.0); Hemoglobin 11.9 g/dL (11.5-15.3); Lymphocytes # 3.3 10^3/uL (0.8-4.8); Lymphocytes % 32.3 %; Mean Corpuscular HGB Conc 33.6 g/dL (30.0-36.0); Mean Corpuscular Hemoglobin 34.2 pg (28.0-34.0); Mean Corpuscular Volume 101.7 fL (81-99); Mean Platelet Volume 9.9 fL (7.4-10.4); Monocytes % 9.9 %; Neutrophils # 5.51 10^3/uL (1.8-7.7); Neutrophils % 54.4 %; Nucleated Red Blood Cells % 0 %; Platelet Count 233 10^3/cmm (130-400); Red Blood Count 3.48 10^6/uL (4.1-5.3); Red Cell Distribution Width 13.6 % (12.1-15.1); White Blood Count 10.1 10^3/uL (4.0-10.0)
[2020-10-13 04:21] LABS: Alanine Aminotransferase 25 U/L (0-33); Albumin Level 4.1 g/dL (3.5-5.2); Alkaline Phosphatase 64 IU/L (35-105); Aspartate Amino Transferase 16 U/L (0-32); Blood Urea Nitrogen 11 mg/dL (6-20); C Reactive Protein 0.3 mg/L (0.0-4.9); Calcium 9.2 mg/dL (8.5-10.5); Carbon Dioxide 27 mmol/L (22-29); Chloride 90 mmol/L (98-107); Globulin 2.9 g/dL (1.3-4.6); Glomerular Filtration Rate 73.9 mL/min (90-130); Glucose 65 mg/dL (65-115); Lipase 23 U/L (13-60); Osmolality Calculated 266 mOsm/kg (285-295); Sodium 129 mmol/L (136-145); Total Bilirubin 0.2 mg/dL (0.15-1.2)
[2020-10-13 04:24] LABS: Anion Gap 16.4 (5-19); Potassium 4.4 mmol/L (3.5-5.1)
[2020-10-13 04:53] LABS: Add Urine Microscopic? NO
[2020-10-13 04:55] LABS: Bilirubin Urine Neg (Negative); Blood Urine Neg (Negative); Glucose Urine UA Norm (Normal); Ketones Urine Negative (Negative); Leukocyte Esterase Urine Negative (Negative); Nitrate Urine Negative (Negative); Protein Urine Neg (Negative); Urine Appearance Clear (CLEAR); Urine Color Straw (Yellow); Urobilinogen Urine Norm (Negative); pH Urine 7 (5-7)
[2020-10-13] MEDS: magnesium citrate Btl 296 mL PO (05:03)
[2020-10-13] MEDS: mineral oil 30 mL UDC PO (05:04)
[2020-10-13] MEDS: lactulose oral liq 20 gm/30 mL UDC 30 GM PO (05:04)
[2020-10-13] MEDS: magnesium hydroxide 30 mL UDC PO (05:05)
[2020-10-13 05:12] VITALS: BP 122/70; PULSE 71; RESP 17; O2SAT 99
== END 2020-10-13 05:12 | disposition home or self-care (01) ==
PROVIDERS: Emergency Provider Emergency Medicine; PCP Nurse Practitioner
DX: K59.03 Drug induced constipation (principal); F17.210 Nicotine dependence, cigarettes, uncomplicated
CPT/HCPCS: 12345; 74018; 80053; 81003; 83690; 85025; 86140; 99282; 99283

== ENCOUNTER 2020-10-16 04:45 | Emergency (ER) | payer MEDICARE, MEDICAID, SELFPAY ==
[2020-10-16 04:50] VITALS: BP 124/103; PULSE 81; RESP 19; TEMP 36.7; O2SAT 100; BMI 28.0
[2020-10-16 06:13] LABS: Add Urine Microscopic? NO
[2020-10-16 06:16] VITALS: BP 169/104; PULSE 74; RESP 18
[2020-10-16 06:28] LABS: Urine Color Straw (Yellow)
[2020-10-16 06:29] LABS: Bilirubin Urine Neg (Negative); Blood Urine Neg (Negative); Glucose Urine UA Norm (Normal); Ketones Urine Negative (Negative); Leukocyte Esterase Urine Negative (Negative); Nitrate Urine Negative (Negative); Protein Urine Neg (Negative); Urine Appearance Clear (CLEAR); Urobilinogen Urine Norm (Negative); pH Urine 6 (5-7)
[2020-10-16 07:00] VITALS: BP 151/66; PULSE 74; O2SAT 98
--- NOTE | 2020-10-16 07:08 | W.ED.BACK ---
HPI - Back Pain/Injury General: Chief Complaint: Back Pain/Injury Stated Complaint: back pain Time Seen by Provider: 10/16/20 04:50 History of Present Illness: HPI Narrative: 55-year-old female comes in complaining of back pain this is been an ongoing thing for pretty much all of her visits in the EMR related to her chronic back pain. She handcarried some of her records and has an MRI from December of last year which shows some moderate disc disease no significant impingement is noted. Has been here several times recently she has been to the pain clinic once from reading Dr. Calderon notes they had offered to do some imaging and even some potentially procedures to relieve her pain she declined those expressing a preference for narcotics. It appears according to the notes that was her last visit she not been seen there since. She tells me she seen Dr. Najera a neurosurgeon in [place] and she has an appointment next week quickly reviewing the notes to find several references to neurosurgery in [place] although the patient states she is not had any definitive procedures or interventions done through this office yet. She not had any further imaging since the procedure done in December 2019. She complaining of pain today going into her legs predominantly her right leg. She has had some constipation relieved by enemas. She is not had any urinary incontinence or retention. No fecal recurrent incontinence. MD elicited complaint: back pain Pertinent past history: prior back pain Onset (ago): month(s) Timing: constant Severity: moderate Similar Symptoms Previously: Yes Quality: burning, sharp and spasming Location: lumbar spine Exacerbating factors: movement, sitting upright and walking Relieving factors: supine Associated symptoms: Reports difficulty walking; Deny abdominal pain, arthralgias, chills, change in bowel habits, dysuria, fatigue, fecal incontinence, fever(s), hematuria, myalgias, nausea, numbness, syncope, tingling/numbness/burning, urinary frequency, urinary urgency, vomiting or weakness Treatments prior to arrival: NSAIDS, acetaminophen and other medications Review of Systems Const: Denies: fever(s), chills or fatigue ENMT: Denies: throat pain, ear or mastoid pain, nasal discharge or nasal congestion Card: Denies: syncope Resp: Denies: dyspnea, productive cough or non-productive cough GI: Denies: abdominal pain, nausea, vomiting, fecal incontinence or change in bowel habits : Denies: dysuria, urinary urgency or hematuria Skin/Breast: Denies: rash or pruritus Neuro: Reports: difficulty walking PFSH ED PFSH: Medical History Chronic back pain Degenerative disc disease, lumbar Seasonal affective disorder Surgical History History of cervical spinal surgery October 04, 2019 History of cholecystectomy History of hysterectomy History of tonsillectomy History of tubal ligation Family History Other Cancer Dementia Diabetes Hypertension Stroke Denies family history of Bleeding disorder Social History Smoking and tobacco status: current every day smoker cigarettes Second hand smoke exposure: No Smoking risk assessment/counseling performed?: Yes Alcohol intake: never Desire information about alcohol rehabilitation?: No Counseling given: No Desire information about substance/drug rehabilitation?: No Counseling given: No Adopted: No Caregiver/support person: Yes Lives independently: Yes Household members: significant other Housing: House Marital status: Number of children: 2 service: No Current occupational status: unemployed Pets and animals: No History of recent travel: No Current gender identity: Female Physical Exam Const: COMMON NORMALS: no acute distress GENERAL APPEARANCE: cooperative and comfortable ORIENTATION/CONSCIOUSNESS: Yes awake, Yes oriented to person, Yes oriented to place and Yes oriented to time HENMT: COMMON NORMALS: normocephalic, atraumatic and hearing grossly normal bilaterally HEAD & SCALP: normocephalic and atraumatic Neck/C-Spine: COMMON NORMALS: no JVD Resp: COMMON NORMALS: normal respiratory effort, No retractions, No use of accessory muscles and clear to auscultation bilaterally AUSCULTATION: clear to auscultation bilaterally Cardio: COMMON NORMALS: no JVD, regular rate, regular rhythm and No murmurs present (Cardio) RATE: regular rate RHYTHM: regular rhythm GI: COMMON NORMALS: Soft to palpation and No hepatosplenomegaly present AUSCULTATION: Yes normoactive bowel sounds PALPATION: Yes Soft to palpation, No Tenderness to palpation present (GI), No Guarding due to palpation present (GI) and Yes No hepatosplenomegaly present Extremity: COMMON NORMALS: normal to inspection, capillary refill normal, no clubbing, cyanosis or edema, no calf tenderness and no pedal edema Neuro: SENSORIUM/ORIENTATION: Yes oriented to person, Yes oriented to place and Yes oriented to time Skin: COMMON NORMALS: no rashes or lesions noted GENERAL SKIN EXAM: no rashes or lesions noted Course Vital Signs: Vital signs: Vital Signs Temperature 98.1 F 10/16/20 04:50 Pulse Rate 80 10/16/20 08:05 Respiratory Rate 16 10/16/20 08:05 Blood Pressure 144/80 10/16/20 08:05 Pulse Oximetry 100 10/16/20 08:05 MDM - Back Pain/Injury MDM Narrative: Medical decision making narrative: Improved after medications. Sensation lower extremity straight leg raising negative. Reviewing chart she was seen at pain clinic previously and declined further interventions there. She is follow-up with neurosurgery in [place] this coming week encourage her to continue follow-up with them for more definitive care. This is generally chronic in nature. Lab Data: Labs: Lab Results 10/16/20 Range/Units 05:50 Urine Color Straw (Yellow) Urine Appearance Clear (CLEAR) Urine pH 6 (5-7) Ur Specific Gravit y 1.010 (1.005-1.030) Urine Protein Neg (Negative) Urine Glucose (UA) Norm (Normal) Urine Ketones Negative (Negative) Urine Blood Neg (Negative) Urine Nitrate Negative (Negative) Urine Bilirubin Neg (Negative) Urine Urobilinogen Norm (Negative) mg/dL Ur Leukocyte Brandie ase Negative (Negative) Discharge Plan Discharge Patient Disposition: Home Clinical Impression: Chronic low back pain Condition: Stable Prescriptions: New tizanidine 4 mg capsule 4 mg PO Q6H PRN (Reason: muscle spasticity) Qty: 20 RF: 0 Medrol (Chema) 4 mg tablets,dose pack See Rx Instructions .ROUTE .COMPLEX Qty: 21 RF: 0 diclofenac sodium 75 mg tablet,delayed release (DR/EC) 75 mg PO Q12H PRN (Reason: pain) Qty: 20 RF: 0 No Action cyclobenzaprine 10 mg tablet 10 mg PO Q8H 30 Days Qty: 90 RF: 0 clonazepam 0.5 mg tablet 0.5 mg PO DAILY Qty: 30 RF: 2 tramadol 50 mg tablet 50 mg PO TID Qty: 90 RF: 2 cholecalciferol (vitamin D3) 125 mcg (5,000 unit) capsule 125 mcg PO DAILY Qty: 30 RF: 2 calcium carbonate [Calcium 600] 600 mg calcium (1,500 mg) tablet 600 mg PO BID RF: 0 mecobalamin (vitamin B12) 1,000 mcg tablet,disintegrating 1,000 mcg SUBLINGUAL DAILY RF: 0 ibuprofen 800 mg tablet 800 mg PO Q8H RF: 0 diphenhydramine HCl [Benadryl Allergy] 25 mg tablet 25 mg PO Q6H PRNRF: 0 acyclovir 400 mg tablet 400 mg PO DAILY RF: 0 ondansetron HCl 4 mg tablet 4 mg PO Q8H RF: 0 gabapentin 600 mg tablet 600 mg PO TID Qty: 90 RF: 2 Amitiza 24 mcg capsule 24 mcg PO DAILY Qty: 30 RF: 2 Naprosyn 500 mg tablet 500 mg PO BID PRN (Reason: pain) Qty: 20 RF: 0 Tylenol 325 mg Tablet 325 - 650 mg PO Q4H PRN (Reason: Pain) RF: 0 citalopram 20 mg tablet 20 mg PO DAILY RF: 0 Excedrin Extra Strength 250-250-65 mg Tablet 1 - 2 tab PO Q4H PRN (Reason: Pain) RF: 0 levocetirizine 5 mg tablet 5 mg PO DAILY RF: 0 Medrol (Chema) 4 mg tablets,dose pack See Rx Instructions .ROUTE .COMPLEX Qty: 21 RF: 0 Discharge Orders: Discharge ED (Routine); Ordered 10/16/20 Ordered By: Nirav Menjivar Referrals: Mely Thornton, BRILLIANDEER LOPPER-C [Primary Care Provider] - Discharge Diet: Usual diet Discharge Activity: Resume usual activity Patient Instructions: Opioid Safety Coding Level of Care Code ED Crusher Operator for Jerry Kerr
[2020-10-16] MEDS: ondansetron 2 mg/ML SDV 2 mL 4 MG IVP (07:25)
[2020-10-16] MEDS: orphenadrine 30 mg/mL Inj 2 mL 60 MG IVP (07:26)
[2020-10-16 07:28] VITALS: RESP 18; O2SAT 98
[2020-10-16] MEDS: morphine 4 mg/mL SDV 1 mL 6 MG IVP (07:28)
[2020-10-16] MEDS: dexamethasone 4 mg/mL INJ 10 MG IVP (07:30)
[2020-10-16 08:05] VITALS: BP 144/80; PULSE 80; RESP 16; O2SAT 100
== END 2020-10-16 08:05 | disposition home or self-care (01) ==
PROVIDERS: Family Medicine; Emergency Provider Family Medicine; PCP Nurse Practitioner
DX: M54.5 Low back pain (principal); F17.210 Nicotine dependence, cigarettes, uncomplicated; M51.36 Other intervertebral disc degeneration, lumbar region
CPT/HCPCS: 81003; 96374; 96375; 99283; J1100; J2270; J2360; J2405

== ENCOUNTER 2021-01-04 23:17 | Emergency (ER) | payer MEDICARE, MEDICAID, SELFPAY ==
[2021-01-04 23:24] VITALS: BP 121/68; PULSE 72; RESP 16; TEMP 36.8; O2SAT 96; BMI 26.5
--- NOTE | 2021-01-04 23:31 | ECG_ITS ---
[facility] Test Date: 2021-01-05 Pat Name: Lilli Camarillo Department: Room: Gender: Female [employer]: : 1965 Requested By: Brian Castaneda Order Number: [id number] Miguel MD: Rosas Anderson M.D. Measurements Intervals [place] Rate: 68 P: 59 [place]: 154 QRS: 54 QRSD: 86 T: 40 QT: 402 QTc: 429 Interpretive Statements SINUS RHYTHM Compared to ECG 06/09/2015 07:43:17 No significant changes Electronically Signed On 01-07-2021 7:58:19 CDT by Rosas Anderson M.D. [id number] f
[2021-01-05] MEDS: sodium chloride 0.9% 1,000 ML 999 ML IV (00:01)
[2021-01-05 00:08] VITALS: BP 109/70; PULSE 67; RESP 16; O2SAT 94
[2021-01-05 00:08] LABS: Basophils # 0.1 10^3/uL (0.0-0.1); Basophils % 1.1 %; Eosinophils # 0.4 10^3/uL (0.0-0.8); Eosinophils % 6.2 %; Hemoglobin 10.9 g/dL (11.5-15.3); Lymphocytes # 2.8 10^3/uL (0.8-4.8); Lymphocytes % 44.8 %; Mean Corpuscular HGB Conc 35.2 g/dL (30.0-36.0); Mean Corpuscular Hemoglobin 33.9 pg (28.0-34.0); Mean Corpuscular Volume 96.3 fL (81-99); Mean Platelet Volume 10.4 fL (7.4-10.4); Monocytes # 0.6 10^3/uL (0.2-0.9); Monocytes % 10.3 %; Neutrophils % 37.4 %; Nucleated Red Blood Cells % 0 %; Platelet Count 283 10^3/cmm (130-400); Red Blood Count 3.22 10^6/uL (4.1-5.3); White Blood Count 6.1 10^3/uL (4.0-10.0)
[2021-01-05 00:41] LABS: Lactate (Lactic Acid level) 1.5 mmol/L (0.5-2.2)
[2021-01-05 00:45] VITALS: RESP 17; O2SAT 99
[2021-01-05 01:29] VITALS: BP 119/80; O2SAT 97
[2021-01-05 01:29] LABS: Alanine Aminotransferase 9 U/L (0-33); Albumin Level 3.6 g/dL (3.5-5.2); Alkaline Phosphatase 88 IU/L (35-105); Blood Urea Nitrogen 9 mg/dL (6-20); Carbon Dioxide 24 mmol/L (22-29); Chloride 97 mmol/L (98-107); Creatine Phosphokinase 62 U/L (26-192); Globulin 2.7 g/dL (1.3-4.6); Glomerular Filtration Rate 86.2 mL/min (90-130); Glucose 85 mg/dL (65-115); Osmolality Calculated 270 mOsm/kg (285-295); Sodium 131 mmol/L (136-145); Total Bilirubin 0.2 mg/dL (0.15-1.2); Total Protein 6.3 g/dL (6.6-8.7)
[2021-01-05 01:32] LABS: Anion Gap 13.9 (5-19); Aspartate Amino Transferase 17 U/L (0-32); Potassium 3.9 mmol/L (3.5-5.1)
--- NOTE | 2021-01-05 01:38 | XRR_ITS ---
PROCEDURE INFORMATION: Exam: XR Abdomen Exam date and time: 01/05/2021 1:41 AM Age: 55 years old Clinical indication: Abdominal pain; Prior surgery; Surgery date: 6+ months; Surgery type: Hyst, gb, l-sp; Patient HX: C/O generalized pain w HX of medication constipation; Additional info: Abd pain TECHNIQUE: Imaging protocol: XR of the abdomen. Views: Frontal supine view of the abdomen. 1 View. COMPARISON: CR XR KUB portable [id number] 10/13/2020 3:43 AM FINDINGS: Gastrointestinal tract: Normal. No bowel dilation. Bones/joints: Pedicle screws and posterior rods extend from L4-S1. XR/XR KUB portable [id number] IMPRESSION: Stable appearance of the abdomen compared with 10/13/2020.
[2021-01-05 02:04] LABS: Add Urine Microscopic? NO; Charge for UA Resulting for Rev
[2021-01-05 02:08] LABS: Bilirubin Urine Neg (Negative); Blood Urine Neg (Negative); Glucose Urine UA Norm (Normal); Ketones Urine Negative (Negative); Leukocyte Esterase Urine Negative (Negative); Nitrate Urine Negative (Negative); Protein Urine Neg (Negative); Urine Appearance Clear (CLEAR); Urine Color Yellow (Yellow); Urobilinogen Urine Norm (Negative); pH Urine 5 (5-7)
--- NOTE | 2021-01-05 02:08 | W.ED.WEAKNES ---
HPI - Weakness General: Chief complaint: Weakness Stated complaint: GEN MALAISE; HURTS ALL OVER Time Seen by Provider: 01/04/21 23:27 History of Present Illness: HPI Narrative: 55-year-old female with a history of chronic pain and constipation. She presents with generalized weakness, abdominal discomfort, and malaise with increased pain for the past 2 to 3 days. Her speaks for her on and off throughout questioning. She denies any fever. She denies significant shortness of breath or cough. She denies chest discomfort. There is no increased numbness, mental status changes, or trouble with language. She simply states, I have not felt well . Complaint: generalized weakness Onset (ago): day(s) (2) Duration: constant Location: generalized Migration: none Severity: moderate Relieving factors: none Exacerbating factors: none Context: other (out of medication) Associated symptoms: Reports decreased appetite and nausea; Denies chest pain, chills, confusion, diaphoresis, fever(s), headache(s), short of breath, syncope or vomiting Review of Systems Const: Denies: fever(s), chills or diaphoresis Eyes: Denies: change in vision Card: Denies: chest pain or syncope Resp: Denies: dyspnea, productive cough or non-productive cough GI: Reports: abdominal pain and nausea; Denies: vomiting Neuro: Denies: headache(s) or confusion PFSH ED PFSH: Medical History Chronic back pain Constipation due to pain medication Degenerative disc disease, lumbar Seasonal affective disorder Surgical History History of cervical spinal surgery October 04, 2019 History of cholecystectomy History of hysterectomy History of tonsillectomy History of tubal ligation Family History Other Cancer Dementia Diabetes Hypertension Stroke Denies family history of Bleeding disorder Social History Smoking and tobacco status: current every day smoker cigarettes Second hand smoke exposure: No Smoking risk assessment/counseling performed?: Yes Alcohol intake: never Desire information about alcohol rehabilitation?: No Counseling given: No Desire information about substance/drug rehabilitation?: No Counseling given: No Adopted: No Caregiver/support person: Yes Lives independently: Yes Household members: significant other Housing: House Marital status: Number of children: 2 service: No Current occupational status: unemployed Pets and animals: No History of recent travel: No Current gender identity: Female Physical Exam Const: GENERAL APPEARANCE: well developed ORIENTATION/CONSCIOUSNESS: Yes oriented to person, Yes oriented to place and Yes oriented to time HENMT: COMMON NORMALS: normocephalic, external ears normal and Normal external nose present HEAD & SCALP: normocephalic FACE & SINUS: normal facial exam NOSE: Normal external nose present and No nasal discharge present EXTERNAL EAR: Yes external ears normal Eye: COMMON NORMALS: Equal, round and reactive pupils present, EOMs intact bilaterally and conjunctivae normal EYELID: eyelids normal CONJUNCTIVA: Yes conjunctivae normal PUPIL: Yes Equal, round and reactive pupils present Neck/C-Spine: GENERAL: No tracheal deviation Chest: COMMONS NORMALS: normal inspection of the chest CHEST: No tenderness Resp: COMMON NORMALS: clear to auscultation bilaterally EFFORT & INSPECTION: No tachypneic, No respiratory distress, No retractions, No uses accessory muscles and No tracheal deviation AUSCULTATION: clear to auscultation bilaterally, no rhonchi, no wheezes and lung sounds not diminished Cardio: COMMON NORMALS: regular rate and regular rhythm RATE: regular rate RHYTHM: regular rhythm HEART SOUNDS: no murmurs PERIPHERAL PULSES: radial pulses present GI: INSPECTION: No abdominal distension AUSCULTATION: No Hyperactive bowel sounds present and No Hypoactive bowel sounds present PALPATION: Yes Tenderness to palpation present (GI) (diffuse), No Guarding due to palpation present (GI) and No Rigid due to palpation PERCUSSION: no dullness to percussion and no tympanic to percussion Neuro: SENSORIUM/ORIENTATION: Yes oriented to person, Yes oriented to place and Yes oriented to time Psych: COMMON NORMALS: mental status grossly normal Skin: COMMON NORMALS: no rashes or lesions noted GENERAL SKIN EXAM: no rashes or lesions noted Course Vital Signs: Vital signs: Vital Signs Temperature 98.3 F 01/04/21 23:24 Pulse Rate 67 01/05/21 00:08 Respiratory Rate 17 01/05/21 00:45 Blood Pressure 119/80 01/05/21 01:29 Pulse Oximetry 97 01/05/21 01:29 MDM - Weakness MDM Narrative: Medical decision making narrative: 55-year-old female with generalized malaise and weakness. She states that she has not felt well for the past couple of days. She has been out of her Linzess, and a couple of other of her medications. Hemoglobin is 11, white blood cell count 6.1. Electrolytes are benign. Urinalysis is negative. KUB shows constipation without impaction. No obstructive pattern. Lab Data: Attestation: I reviewed the patient's lab results. Labs: Lab Results 01/04/21 01/04/21 01/04/21 Range/Units 23:58 23:58 23:58 WBC 6.1 (4.0-10.0) 10^3/ uL RBC 3.22 L (4.1-5.3) 10^6/u L Hgb 10.9 L (11.5-15.3) g/dL Hct 31.0 L (37.0-47.0) % MCV 96.3 (81-99) fL MCH 33.9 (28.0-34.0) pg MCHC 35.2 (30.0-36.0) g/dL RDW 12.0 L (12.1-15.1) % Plt Count 283 (130-400) 10^3/c mm MPV 10.4 (7.4-10.4) fL Neut % (Auto) 37.4 % Lymph % (Auto) 44.8 % Morrill % (Auto) 10.3 % Eos % (Auto) 6.2 % Baso % (Auto) 1.1 % Neut # (Auto) 2.30 (1.8-7.7) 10^3/u L Lymph # (Auto) 2.8 (0.8-4.8) 10^3/u L Morrill # (Auto) 0.6 (0.2-0.9) 10^3/u L Eos # (Auto) 0.4 (0.0-0.8) 10^3/u L Baso # (Auto) 0.1 (0.0-0.1) 10^3/u L Nucleated RBC % (a uto) 0 % Nucleated RBCs # 0.0 /100WBC Sodium Cancelled Potassium Cancelled Chloride Cancelled Carbon Dioxide Cancelled Anion Gap Cancelled BUN Cancelled Creatinine Cancelled GFR Calculation Cancelled Glucose Cancelled Calculated Osmolal ity Cancelled Lactate 1.5 (0.5-2.2) mmol/L Calcium Cancelled Total Bilirubin Cancelled AST Cancelled ALT Cancelled Alkaline Phosphata se Cancelled Creatine Kinase Cancelled Total Protein Cancelled Albumin Cancelled Globulin Cancelled Urine Color (Yellow) Urine Appearance (CLEAR) Urine pH (5-7) Ur Specific Gravit y (1.005-1.030) Urine Protein (Negative) Urine Glucose (UA) (Normal) Urine Ketones (Negative) Urine Blood (Negative) Urine Nitrate (Negative) Urine Bilirubin (Negative) Urine Urobilinogen (Negative) mg/dL Ur Leukocyte Brandie ase (Negative) 01/05/21 01/05/21 Range/Units 01:08 01:54 WBC (4.0-10.0) 10^3/ uL RBC (4.1-5.3) 10^6/u L Hgb (11.5-15.3) g/dL Hct (37.0-47.0) % MCV (81-99) fL MCH (28.0-34.0) pg MCHC (30.0-36.0) g/dL RDW (12.1-15.1) % Plt Count (130-400) 10^3/c mm MPV (7.4-10.4) fL Neut % (Auto) % Lymph % (Auto) % Morrill % (Auto) % Eos % (Auto) % Baso % (Auto) % Neut # (Auto) (1.8-7.7) 10^3/u L Lymph # (Auto) (0.8-4.8) 10^3/u L Morrill # (Auto) (0.2-0.9) 10^3/u L Eos # (Auto) (0.0-0.8) 10^3/u L Baso # (Auto) (0.0-0.1) 10^3/u L Nucleated RBC % (a uto) % Nucleated RBCs # /100WBC Sodium 131 L Potassium 3.9 Chloride 97 L Carbon Dioxide 24 Anion Gap 13.9 BUN 9 Creatinine 0.7 GFR Calculation 86.2 L Glucose 85 Calculated Osmolal ity 270 L Lactate (0.5-2.2) mmol/L Calcium 8.0 L Total Bilirubin 0.2 AST 17 ALT 9 Alkaline Phosphata se 88 Creatine Kinase 62 Total Protein 6.3 L Albumin 3.6 Globulin 2.7 Urine Color Yellow (Yellow) Urine Appearance Clear (CLEAR) Urine pH 5 (5-7) Ur Specific Gravit y 1.020 (1.005-1.030) Urine Protein Neg (Negative) Urine Glucose (UA) Norm (Normal) Urine Ketones Negative (Negative) Urine Blood Neg (Negative) Urine Nitrate Negative (Negative) Urine Bilirubin Neg (Negative) Urine Urobilinogen Norm (Negative) mg/dL Ur Leukocyte Brandie ase Negative (Negative) Discharge Plan Discharge Patient Disposition: Home Clinical Impression: Constipation due to pain medication, Malaise Condition: Stable Prescriptions: Continued Linzess 145 mcg capsule 145 mcg PO DAILY Qty: 30 RF: 1 No Action clonazepam 0.5 mg tablet 0.5 mg PO DAILY Qty: 30 RF: 2 tramadol 50 mg tablet 50 mg PO TID Qty: 90 RF: 2 cholecalciferol (vitamin D3) 125 mcg (5,000 unit) capsule 125 mcg PO DAILY Qty: 30 RF: 2 citalopram 20 mg tablet 20 mg PO .2 times day Qty: 90 RF: 2 ibuprofen 800 mg tablet 800 mg PO Q8H Qty: 90 RF: 2 cyclobenzaprine 10 mg tablet 10 mg PO .every 6 hours Qty: 120 RF: 0 prednisone 10 mg tablet 10 mg PO DAILY Qty: 17 RF: 0 trazodone 100 mg tablet 100 mg PO .bedtime Qty: 30 RF: 0 calcium carbonate [Calcium 600] 600 mg calcium (1,500 mg) tablet 600 mg PO BID RF: 0 mecobalamin (vitamin B12) 1,000 mcg tablet,disintegrating 1,000 mcg SUBLINGUAL DAILY RF: 0 levocetirizine 5 mg tablet 5 mg PO DAILY RF: 0 Discharge Orders: Discharge ED (Routine); Ordered 01/05/21 Ordered By: Brian Rose Referrals: Susy Padilla FNP [Primary Care Provider] - 4-7 days Discharge Diet: Advance as tolerated Discharge Activity: Resume usual activity Patient Instructions: Constipation (ED), Fatigue (ED), Opioid Safety Activity Restrictions/Additional Instructions: Take the medication you were given for constipation when you get home. Return for worsening weakness despite treatment, mental status changes, fever greater than 100, vomiting liquids or medications, other concerning symptoms. Coding Level of Care Code ED Applications Development Analyst for Chg Fwd Exam Comprehensive
[2021-01-05 02:28] VITALS: BP 131/84; PULSE 66; RESP 14; O2SAT 97
[2021-01-05 02:50] VITALS: BP 114/85; PULSE 66; RESP 17; O2SAT 96
== END 2021-01-05 02:51 | disposition home or self-care (01) ==
PROVIDERS: Emergency Provider Emergency Medicine; PCP Nurse Practitioner Family
DX: K59.03 Drug induced constipation (principal); T40.2X5A Adverse effect of other opioids, initial encounter; R53.81 Other malaise; F17.210 Nicotine dependence, cigarettes, uncomplicated
CPT/HCPCS: 74018; 80053; 81003; 82550; 83605; 85025; 93005; 96360; 99283; J7030

== ENCOUNTER → 2021-01-05 08:32 | Outpatient (BNVA) | payer MEDICARE, MEDICAID, SELFPAY | PROVIDERS: PCP Nurse Practitioner Family; Referring Provider Nurse Practitioner Family; Visit Provider Nurse Practitioner | DX: G43.909 Migraine, unspecified, not intractable, without status migrainosus (principal); F17.210 Nicotine dependence, cigarettes, uncomplicated | CPT/HCPCS: 99205 ==

== ENCOUNTER → 2021-01-29 09:42 | Outpatient (BNVA) | payer MEDICARE, MEDICAID, SELFPAY | PROVIDERS: PCP Nurse Practitioner Family; Visit Provider Nurse Practitioner | DX: F43.12 Post-traumatic stress disorder, chronic (principal); F15.21 Other stimulant dependence, in remission; F10.21 Alcohol dependence, in remission; F12.21 Cannabis dependence, in remission | CPT/HCPCS: 99215 ==

== ENCOUNTER → 2021-02-09 08:15 | Outpatient (BNVA) | payer MEDICARE, MEDICAID, SELFPAY | PROVIDERS: PCP Nurse Practitioner Family; Visit Provider Nurse Practitioner | DX: F43.12 Post-traumatic stress disorder, chronic (principal); F12.21 Cannabis dependence, in remission; F10.21 Alcohol dependence, in remission; F15.21 Other stimulant dependence, in remission | CPT/HCPCS: 99214 ==

== ENCOUNTER → 2021-02-23 07:59 | Outpatient (BNVA) | payer MEDICARE, MEDICAID, SELFPAY | PROVIDERS: PCP Nurse Practitioner Family; Visit Provider Specialist | DX: G43.711 Chronic migraine without aura, intractable, with status migrainosus (principal); F17.210 Nicotine dependence, cigarettes, uncomplicated | CPT/HCPCS: 99214 ==

== ENCOUNTER 2021-03-31 09:16 | Outpatient (RCR) | payer MEDICARE, MEDICAID, SELFPAY | END 2021-04-04 23:59 | disposition home or self-care (01) | LOC: SPT 09:16 | PROVIDERS: PCP Nurse Practitioner Family; Visit Provider Neurological Surgery | DX: M54.2 Cervicalgia (principal); M54.5 Low back pain | CPT/HCPCS: 97161 ==

== ENCOUNTER 2022-02-02 11:43 | Outpatient (CLI) | payer MEDICARE, MEDICAID, SELFPAY ==
--- NOTE | 2022-02-02 11:55 | CT_ITS ---
WS: [email or web address] CT NECK TECHNIQUE: Contrast-enhanced CT of the neck with coronal and sagittal reformatted images. CLINICAL INFORMATION: SENSORINEURAL HEARING LOSS,BILATERAL/OTALGIA COMPARISON: 4 15,011 DLP: 198.[address] scans at [facility] use at least one of these dose optimization techniques: automated e xposure control; mA and/or kV adjustment per patient size (includes targeted exams where dose is matc hed to clinical indication); or iterative reconstruction. FINDINGS: Mastoid air cells well aerated. Paranasal sinuses are well aerated. Normal posterior nasopharynx. Nor mal parapharyngeal fat. Parotid glands are normal. Normal submandibular glands. No evidence of suprag lottic or glottic mass. Normal subglottic airway. Calcified granulomas in the lung apices. Straighten ing of the normal cervical lordosis. Slight anterolisthesis C3 on C4. ACDF C5-C7. CT/CT neck w con* [id number] IMPRESSION: 1. Paranasal sinuses and mastoid air cells are well aerated. 2. Normal posterior nasopharynx. Normal parapharyngeal fat. 3. Normal salivary glands. 4. No cervical lymphadenopathy. 5. Prior postoperative changes ACDF C5-C7. 6. Slight anterolisthesis C3 on C4.
[2022-02-02] MEDS: iohexol 300 mg/mL 50 mL Btl IV (12:04)
== END 2022-02-02 11:44 | disposition home or self-care (01) ==
LOC: RAD 11:48
PROVIDERS: PCP Nurse Practitioner Family; Visit Provider Specialist
DX: H90.3 Sensorineural hearing loss, bilateral (principal); H92.03 Otalgia, bilateral; H93.13 Tinnitus, bilateral
CPT/HCPCS: 70491

== ENCOUNTER → 2022-05-14 09:28 | Outpatient (BNVA) | payer MEDICARE, MEDICAID, SELFPAY | PROVIDERS: PCP Nurse Practitioner Family; Visit Provider Nurse Practitioner | DX: M25.532 Pain in left wrist (principal) | CPT/HCPCS: 73090; 73110 ==

== ENCOUNTER → 2022-06-10 09:49 | Outpatient (BNVA) | payer MEDICARE, MEDICAID, SELFPAY | PROVIDERS: PCP Nurse Practitioner; Visit Provider Internal Medicine | DX: M54.2 Cervicalgia (principal); M54.9 Dorsalgia, unspecified; Z11.59 Encounter for screening for other viral diseases; G89.29 Other chronic pain; F41.1 Generalized anxiety disorder | CPT/HCPCS: 99204 ==

== ENCOUNTER 2022-06-11 11:24 | Outpatient (CLI) | payer MEDICARE, MEDICAID, SELFPAY ==
--- NOTE | 2022-06-11 11:33 | XR_ITS ---
WS: [email or web address] XR hand RT 2V [id number] REASON FOR EXAM: F41.1 - Generalized anxiety disorder FINDINGS: No fracture or other focal bone lesion. Mild to moderate joint space narrowing with mild to moderate subchondral sclerosis and osteophytosis of the DIP and PIP joints of the fingers. Similar arthropathy in the carpal metacarpal and metacarpal phalangeal joint of the thumb. No erosions or periosteal reaction. No soft tissue abnormality. XR/XR hand RT 2V [id number] IMPRESSION: Osteoarthritis of the right hand as above.
--- NOTE | 2022-06-11 11:33 | XR_ITS ---
WS: [email or web address] XR sacroiliac jts m 3V [id number] REASON FOR EXAM: L40.9 - Psoriasis, unspecified FINDINGS: No fracture or focal bone lesion of the sacrum. No bridging or fusion. Sacroiliac joints are well defined. No marginal erosions or significant sclerosis. XR/XR sacroiliac jts m 3V [id number] IMPRESSION: No findings of sacroiliitis.
--- NOTE | 2022-06-11 11:33 | XR_ITS ---
WS: [email or web address] XR hand LT 2V [id number] REASON FOR EXAM: F41.1 - Generalized anxiety disorder FINDINGS: No fracture or focal bone lesion. Mild to moderate narrowing of the joint space with mild to moderate subchondral sclerosis and margina l osteophytosis in the DIP and PIP joints of the fingers. Similar arthropathy is seen in the carpal m etacarpal and metacarpal phalangeal joint of the thumb. No erosions or periosteal reaction. No soft tissue abnormality. XR/XR hand LT 2V [id number] IMPRESSION: Osteoarthritis of the left hand as above.
[2022-06-11 12:03] LABS: Basophils % 0.2 %; Eosinophils % 0.2 %; Hematocrit 34.6 % (37.0-47.0); Hemoglobin 11.5 g/dL (11.5-15.3); Lymphocytes # 1.2 10^3/uL (0.8-4.8); Lymphocytes % 8.9 %; Mean Corpuscular HGB Conc 33.2 g/dL (30.0-36.0); Mean Corpuscular Hemoglobin 32.6 pg (28.0-34.0); Mean Platelet Volume 9.7 fL (7.4-10.4); Monocytes # 0.8 10^3/uL (0.2-0.9); Monocytes % 6.2 %; Neutrophils # 11.28 10^3/uL (1.8-7.7); Neutrophils % 84.1 %; Nucleated Red Blood Cells % 0 %; Platelet Count 295 10^3/cmm (130-400); Red Blood Count 3.53 10^6/uL (4.1-5.3); Red Cell Distribution Width 13.6 % (12.1-15.1); White Blood Count 13.4 10^3/uL (4.0-10.0)
[2022-06-11 12:05] LABS: Erythrocyte Sedimentation Rate 1 mm/hr (0-15)
[2022-06-11 12:39] LABS: Alanine Aminotransferase 20 U/L (0-33); Albumin Level 4.2 g/dL (3.5-5.2); Alkaline Phosphatase 93 U/L (35-105); Anion Gap 18.3 (5-19); Aspartate Amino Transferase 17 U/L (0-32); Blood Urea Nitrogen 23 mg/dL (6-20); Calcium 8.2 mg/dL (8.5-10.5); Carbon Dioxide 26 mmol/L (22-29); Chloride 99 mmol/L (98-107); Creatine Phosphokinase 154 U/L (26-192); Globulin 3.1 g/dL (1.3-4.6); Glucose 105 mg/dL (65-115); Osmolality Calculated 292 mOsm/kg (285-295); Phosphorus 4.4 mg/dL (2.5-4.5); Potassium 4.3 mmol/L (3.5-5.1); Sodium 139 mmol/L (136-145); Thyroid Stimulating Hormone 2.67 uIU/mL (0.27-4.20); Total Bilirubin 0.2 mg/dL (0.15-1.2); Total Protein 7.3 g/dL (6.6-8.7); Uric Acid 6.1 mg/dL (2.4-5.7)
[2022-06-11 12:47] LABS: Hepatitis B Core AB, Total Non-Reactive (Nonreactive); Hepatitis B Surface Antigen Non-Reactive (Nonreactive); Hepatitis C Virus Antibody Reactive (Nonreactive)
[2022-06-11 12:58] LABS: Calcium 8.4 mg/dL (8.5-10.5)
[2022-06-11 12:59] LABS: Parathyroid Hormone 87.1 pg/mL (15-65)
[2022-06-11 13:51] LABS: Vitamin B12 441 pg/mL (232-1245)
[2022-06-14 10:48] LABS: THYROID PEROXIDASE ANTIBODIES 1 IU/mL (<9)
[2022-06-14 12:28] LABS: COMPLEMENT, TOTAL (CH50) >60 U/mL (31-60)
[2022-06-14 12:44] LABS: COMPLEMENT COMPONENT C3C 107 mg/dL (83-193); COMPLEMENT COMPONENT C4C 14 mg/dL (15-57)
[2022-06-14 13:23] LABS: Cyclic Citrullinated Peptide <16 UNITS
[2022-06-14 14:52] LABS: ANA SCREEN, IFA NEGATIVE (NEGATIVE)
[2022-06-14 19:48] LABS: Immunoglobulin A <5 mg/dL (47-310)
[2022-06-14 20:03] LABS: HEP C RNA Viral Load Quant <1.18 NOT DETECTED Log IU/mL (NOT DETECTED); HEP C RNA Viral Load Quant <15 NOT DETECTED IU/mL (NOT DETECTED)
[2022-06-15 14:19] LABS: DNA AB (DS) CRITHIDIA,IFA NEGATIVE (NEGATIVE)
[2022-06-16 07:33] LABS: Gliadin Ab.IgA <1.0 U/mL; Gliadin Ab.IgG <1.0 U/mL
[2022-06-16 08:42] LABS: Tissue Transglutaminase IgA Ab <1.0 U/mL; Tissue transglutaminase Ab.IgG 28.6 U/mL
[2022-06-17 15:43] LABS: CENTROMERE B ANTIBODY <1.0 NEG AI (<1.0 NEG); JO-1 ANTIBODY <1.0 NEG AI (<1.0 NEG); RNP ANTIBODY <1.0 NEG AI (<1.0 NEG); SCL-70 ANTIBODY <1.0 NEG AI (<1.0 NEG); SJOGREN'S ANTIBODY (SS-A) <1.0 NEG AI (<1.0 NEG); SM ANTIBODY <1.0 NEG AI (<1.0 NEG); SS-B <1.0 NEG AI (<1.0 NEG)
== END 2022-06-11 11:25 | disposition home or self-care (01) ==
LOC: RAD 11:28
PROVIDERS: PCP Nurse Practitioner; Visit Provider Internal Medicine
DX: F41.1 Generalized anxiety disorder (principal); F10.21 Alcohol dependence, in remission; J44.9 Chronic obstructive pulmonary disease, unspecified; M51.36 Other intervertebral disc degeneration, lumbar region; M54.12 Radiculopathy, cervical region; L40.9 Psoriasis, unspecified; F33.8 Other recurrent depressive disorders; M19.041 Primary osteoarthritis, right hand; M19.042 Primary osteoarthritis, left hand
CPT/HCPCS: 36415; 72202; 73120; 80053; 82310; 82550; 82607; 82784; 83516; 83735; 83970; 84100; 84443; 84550; 85025; 85651; 86140; 86160; 86162; 86200; 86235; 86255; 86376; 86431; 86704; 86803; 87340; 87522

== ENCOUNTER → 2022-07-13 16:45 | Outpatient (BNVA) | payer MEDICARE, MEDICAID, SELFPAY | PROVIDERS: PCP Nurse Practitioner; Visit Provider Nurse Practitioner | DX: Z02.83 Encounter for blood-alcohol and blood-drug test (principal); F41.1 Generalized anxiety disorder; M25.532 Pain in left wrist | CPT/HCPCS: 80307; 81000 ==

== ENCOUNTER 2022-07-14 07:19 | Outpatient (CLI) | payer MEDICARE, MEDICAID, SELFPAY ==
[2022-07-14 08:32] LABS: Lithium 1.1 mmol/L (0.6-1.2)
== END 2022-07-14 07:20 | disposition home or self-care (01) ==
PROVIDERS: PCP Nurse Practitioner; Visit Provider Nurse Practitioner
DX: F41.1 Generalized anxiety disorder (principal)
CPT/HCPCS: 36415; 80178

== ENCOUNTER → 2022-07-21 12:39 | Outpatient (BNVA) | payer MEDICARE, MEDICAID, SELFPAY | PROVIDERS: PCP Nurse Practitioner; Referring Provider Specialist; Visit Provider Specialist | DX: G43.711 Chronic migraine without aura, intractable, with status migrainosus (principal); F11.20 Opioid dependence, uncomplicated; F15.10 Other stimulant abuse, uncomplicated; F41.1 Generalized anxiety disorder; F25.1 Schizoaffective disorder, depressive type | CPT/HCPCS: 80307; 99214 ==

== ENCOUNTER → 2022-08-03 09:48 | Outpatient (BNVA) | payer MEDICARE, MEDICAID, SELFPAY | PROVIDERS: PCP Nurse Practitioner; Visit Provider Internal Medicine | DX: M25.50 Pain in unspecified joint (principal); M51.36 Other intervertebral disc degeneration, lumbar region; K90.0 Celiac disease; R76.8 Other specified abnormal immunological findings in serum; R53.83 Other fatigue | CPT/HCPCS: 99214 ==

== ENCOUNTER 2022-08-18 07:11 | Outpatient (CLI) | payer MEDICARE, MEDICAID, SELFPAY ==
[2022-08-18 08:04] LABS: Albumin Level 3.9 g/dL (3.5-5.2); Alkaline Phosphatase 109 U/L (35-105); Anion Gap 11.9 (5-19); Aspartate Amino Transferase 19 U/L (0-32); Blood Urea Nitrogen 9 mg/dL (6-20); Calcium 8.6 mg/dL (8.5-10.5); Carbon Dioxide 22 mmol/L (22-29); Chloride 108 mmol/L (98-107); Globulin 2.3 g/dL (1.3-4.6); Glomerular Filtration Rate 85.9 mL/min (90-130); Glucose 104 mg/dL (65-115); Osmolality Calculated 285 mOsm/kg (285-295); Potassium 3.9 mmol/L (3.5-5.1); Sodium 138 mmol/L (136-145); Total Bilirubin 0.4 mg/dL (0.15-1.2); Total Protein 6.2 g/dL (6.6-8.7)
[2022-08-18 08:05] LABS: Lithium 0.8 mmol/L (0.6-1.2)
[2022-08-18 08:15] LABS: Alanine Aminotransferase 8 U/L (0-33)
== END 2022-08-18 07:12 | disposition home or self-care (01) ==
LOC: LAB 07:16
PROVIDERS: PCP Nurse Practitioner; Visit Provider Orthopaedic Surgery
DX: Z79.899 Other long term (current) drug therapy (principal)
CPT/HCPCS: 36415; 80053; 80178

== ENCOUNTER 2022-09-07 14:32 | Outpatient (CLI) | payer MEDICARE, MEDICAID, SELFPAY ==
--- NOTE | 2022-09-07 14:30 | USCV_ITS ---
Lilli Camarilol Age: 56 Gender: F : 1965 Exam Date: 09/07/2022 15:00 Ordering Phys: Mely Thornton Technologist: True Hale Exam Location: [facility] [place] Indication: edema BP: 100 / 70 HR: 75 Rhythm: Sinus Technical Quality: Adequate MEASUREMENTS (Male / Female) Normal Values 2D ECHO LV Diastolic Diameter PLAX 5.4 cm 4.2 - 5.9 / 3.9 - 5.3 cm LV Systolic Diameter PLAX 3.5 cm IVS Diastolic Thickness 0.4 cm 0.6 - 1.0 / 0.6 - 0.9 cm IVS Systolic Thickness 0.8 cm LVPW Diastolic Thickness 0.8 cm 0.6 - 1.0 / 0.6 - 0.9 cm LVPW Systolic Thickness 1.2 cm LVOT Diameter 2.0 cm LV Ejection Fraction 2D Teich 62.8 % LV Ejection Fraction MOD 2C 63.9 % LV Ejection Fraction 2C AL 65.2 % LA Diameter 3.1 cm LA Width 3.5 cm LA Height 4.1 cm RA Width 3.6 cm RA Height 4.6 cm Aorta at Sinotubular Diameter 2.2 cm IVC Diameter 1.7 cm M-MODE Aortic Annulus Diameter 2.3 cm LA Ao Ratio MM 1.3 MV E Point Septal Separation 0.4 cm DOPPLER AV Peak Velocity 166.7 cm/s LVOT Peak Velocity 106.0 cm/s AV Area Cont Eq vti 1.9 cm squared AV Area Cont Eq pk 2.0 cm squared MV Peak Velocity 103.0 cm/s MV Area PHT 5.0 cm squared Mitral E to A Ratio 1.1 MV E' Velocity 39.2 cm/s Mitral E to MV E' Ratio 7.4 Mitral E to LV E' Lateral Ratio 6.6 Mitral E to LV E' Septal Ratio 8.4 TR Peak Velocity 293.4 cm/s TR Peak Gradient 34.4 mmHg TR Mean Velocity 221.6 cm/s TR Mean Gradient 22.2 mmHg TR Velocity Time Integral 75.3 cm Right Atrial Pressure 3.0 mmHg Pulmonary Artery Systolic Pressu 37.4 mmHg PV Peak Velocity 97.0 cm/s RV Acceleration Time 0.2 s RV Ejection Time 0.3 s RV AcT/ET 0.6 FINDINGS Left Ventricle Left ventricle is normal in size. LV systolic function is normal with EF of 55 to 60%. No regional wall motion abnormalities are seen. Right Ventricle Normal in size and function Right Atrium Normal in size Left Atrium Normal in size Mitral Valve Structurally normal mitral valve.Trace mitral regurgitation. Aortic Valve Structurally normal aortic valve.No significant stenosis or regurgitation seen Tricuspid Valve Mild tricuspid regurgitation. RVSP is 35 to 40 mmHg. This is consistent with mild pulmonary hypertension. Pulmonic Valve Not well-visualized Pericardium Normal Aorta Normal in size IVC Appears to be normal CONCLUSIONS LV systolic function is normal with EF 55 to 60%. Trace mitral regurgitation Tricuspid regurgitation. Mild pulmonary hypertension No comparison studies are available Rosas Anderson MD (Electronically Signed) Final Date: 08 September 2022 11:54 S
== END 2022-09-07 14:33 | disposition home or self-care (01) ==
LOC: RAD 14:37
PROVIDERS: PCP Nurse Practitioner; Visit Provider Nurse Practitioner
DX: R60.9 Edema, unspecified (principal); I08.1 Rheumatic disorders of both mitral and tricuspid valves; I27.20 Pulmonary hypertension, unspecified
CPT/HCPCS: 93306

== ENCOUNTER → 2022-10-04 11:35 | Outpatient (BNVA) | payer MEDICARE, MEDICAID, SELFPAY | PROVIDERS: PCP Nurse Practitioner; Visit Provider Internal Medicine | DX: K90.0 Celiac disease (principal); R76.8 Other specified abnormal immunological findings in serum; M51.36 Other intervertebral disc degeneration, lumbar region | CPT/HCPCS: 80053; 81001; 84443; 85025; 85651; 86140 ==

== ENCOUNTER → 2022-10-18 14:26 | Outpatient (BNVA) | payer MEDICARE, MEDICAID, SELFPAY | PROVIDERS: PCP Nurse Practitioner; Visit Provider Nurse Practitioner | DX: B00.9 Herpesviral infection, unspecified (principal); J30.2 Other seasonal allergic rhinitis; F33.8 Other recurrent depressive disorders; Z90.710 Acquired absence of both cervix and uterus; Z13.29 Encounter for screening for other suspected endocrine disorder; E55.9 Vitamin D deficiency, unspecified; N18.30 Chronic kidney disease, stage 3 unspecified | CPT/HCPCS: 80053; 80178; 81000; 82306; 84439; 84443; 84481 ==

== ENCOUNTER 2022-12-02 08:08 | Outpatient (CLI) | payer MEDICARE, MEDICAID, SELFPAY ==
--- NOTE | 2022-12-02 08:15 | MM_ITS ---
WS: [email or web address] VIEWS: MLO and CC views both breasts. 3D digital tomosynthesis is also included in this exam. Comparison made with prior exam of 12/27/2006 01/07/2014. Findings: There was no sign of mass, architectural distortion or suspicious calcification in either breast. He terogeneously very dense MM/[place] [id number] Impression: BI-RADS: 2-Benign FOLLOW-UP: 1 Year Follow-up This mammogram was also analyzed by the Computer Aided Detection System R2 Imag e Shoe Stitcher.
== END 2022-12-02 08:09 | disposition home or self-care (01) ==
PROVIDERS: PCP Nurse Practitioner; Visit Provider Obstetrics & Gynecology
DX: Z12.31 Encounter for screening mammogram for malignant neoplasm of breast (principal)
CPT/HCPCS: 77063; 77067

== ENCOUNTER → 2022-12-07 09:01 | Outpatient (BNVA) | payer MEDICARE, MEDICAID, SELFPAY | PROVIDERS: PCP Nurse Practitioner; Visit Provider Internal Medicine | DX: K90.0 Celiac disease (principal); G89.29 Other chronic pain; Z79.899 Other long term (current) drug therapy; H92.09 Otalgia, unspecified ear; M51.36 Other intervertebral disc degeneration, lumbar region; R76.8 Other specified abnormal immunological findings in serum; K86.81 Exocrine pancreatic insufficiency | CPT/HCPCS: 99214 ==

== ENCOUNTER → 2022-12-08 12:48 | Outpatient (BNVA) | payer MEDICARE, MEDICAID, SELFPAY | PROVIDERS: PCP Nurse Practitioner; Visit Provider Otolaryngology | DX: H92.03 Otalgia, bilateral (principal); H61.23 Impacted cerumen, bilateral; M26.603 Bilateral temporomandibular joint disorder, unspecified | CPT/HCPCS: 69210; 99203 ==

== ENCOUNTER → 2022-12-09 08:13 | Outpatient (BNVA) | payer MEDICARE, MEDICAID, SELFPAY | PROVIDERS: PCP Nurse Practitioner; Visit Provider Obstetrics & Gynecology | DX: Z98.890 Other specified postprocedural states (principal) | CPT/HCPCS: 76857 ==

== ENCOUNTER 2022-12-27 12:15 | Outpatient (CLI) | payer MEDICARE, MEDICAID, SELFPAY ==
--- NOTE | 2022-12-27 12:29 | XR_ITS ---
WS: [email or web address] Exam: XR cervical spine fl/ex [id number] Date/Time of Exam: 12/27/2022 12:32 PM Reason For Exam: G89.29 - Other chronic pain Comparison 01/19/2011. No acute fracture. Interbody fusion from C5 to C7 with anterior plate and screw fixation. Intervening disc spacers are noted. The fusion is in good alignment. Degenerative anteroli sthesis of C3 on C4 with about 3 mm forward movement of C3 most pronounced in the neutral and flexed position.. Facet DJD at all levels. Normal paraspinal soft tissues. XR/XR cervical spine fl/ex [id number] IMPRESSION: 1. Stable-appearing anterior fusion from C5 to C7. 2. Degenerative anterolisthesis of C3 on C4 with about 3 mm forward movement of C3. This is most pronounced in the neutral and flexed position.
--- NOTE | 2022-12-27 12:29 | XR_ITS ---
WS: [email or web address] Exam: XR thoracic spine 3V* [id number] Date/Time of Exam: 12/27/2022 12:32 PM Reason For Exam: G89.29 - Other chronic pain No acute fracture or dislocation. Mild spondylosis. Slight dextroscoliosis. Normal paraspinal soft ti ssues. Osteopenia. XR/XR thoracic spine 3V* [id number] IMPRESSION: 1. Mild degenerative changes and osteopenia. 2. No fracture or malalignment. Mild dextroscoliosis.
--- NOTE | 2022-12-27 12:29 | XR_ITS ---
WS: [email or web address] Exam: XR lumbar spine 2-3V* [id number] Date/Time of Exam: 12/27/2022 12:32 PM Reason For Exam: G89.29 - Other chronic pain No acute fracture or dislocation. Interbody fusion from L4 to S1 with pedicle screws and posterior ro ds. Disc implants at L4-5 and L5-S1. The fusion remains in satisfactory alignment. The remainder of t he L-spine is unremarkable. No sign of hardware failure. XR/XR lumbar spine 2-3V* [id number] IMPRESSION: 1. Posterior interbody fusion from L4 to S1 in good alignment without obvious c omplication. 2. The remainder of the lumbar spine is negative.
== END 2022-12-27 12:16 | disposition home or self-care (01) ==
LOC: RAD 12:26
PROVIDERS: PCP Nurse Practitioner; Visit Provider Internal Medicine
DX: G89.29 Other chronic pain (principal); M47.812 Spondylosis without myelopathy or radiculopathy, cervical region; M47.817 Spondylosis without myelopathy or radiculopathy, lumbosacral region; M47.814 Spondylosis without myelopathy or radiculopathy, thoracic region; M85.88 Other specified disorders of bone density and structure, other site; M15.8 Other polyosteoarthritis
CPT/HCPCS: 72040; 72072; 72100

== ENCOUNTER 2023-01-07 11:16 | Outpatient (CLI) | payer MEDICARE, MEDICAID, SELFPAY ==
[2023-01-07 12:17] LABS: Basophils % 0.6 %; Eosinophils # 0.1 10^3/uL (0.0-0.8); Eosinophils % 1.1 %; Hemoglobin 13.4 g/dL (11.5-15.3); Lymphocytes # 2.4 10^3/uL (0.8-4.8); Lymphocytes % 37.6 %; Mean Corpuscular HGB Conc 32.7 g/dL (30.0-36.0); Mean Corpuscular Hemoglobin 31.8 pg (28.0-34.0); Mean Corpuscular Volume 97.2 fl (81-99); Mean Platelet Volume 10.4 fL (7.4-10.4); Monocytes # 0.6 10^3/uL (0.2-0.9); Monocytes % 8.5 %; Neutrophils # 3.38 10^3/uL (1.8-7.7); Nucleated Red Blood Cells % 0 %; Platelet Count 204 10^3/cmm (130-400); Red Blood Count 4.22 10^6/uL (4.1-5.3); Red Cell Distribution Width 11.9 % (12.1-15.1); White Blood Count 6.5 10^3/uL (4.0-10.0)
[2023-01-07 12:21] LABS: Erythrocyte Sedimentation Rate 2 mm/hr (0-15)
[2023-01-07 12:54] LABS: Alanine Aminotransferase 10 U/L (0-33); Albumin Level 4.4 g/dL (3.5-5.2); Alkaline Phosphatase 94 U/L (35-105); Anion Gap 13.4 (5-19); Aspartate Amino Transferase 18 U/L (0-32); Blood Urea Nitrogen 8 mg/dL (6-20); Calcium 9.2 mg/dL (8.5-10.5); Carbon Dioxide 28 mmol/L (22-29); Chloride 104 mmol/L (98-107); Free T4 Free Thyroxine 0.97 ng/dL (0.82-1.77); Glomerular Filtration Rate 73.4 mL/min (90-130); Glucose 81 mg/dL (65-115); Osmolality Calculated 289 mOsm/kg (285-295); Potassium 4.4 mmol/L (3.5-5.1); Sodium 141 mmol/L (136-145); Thyroid Stimulating Hormone 3.36 uIU/mL (0.27-4.20); Total Bilirubin 0.4 mg/dL (0.15-1.2); Total Protein 7.4 g/dL (6.6-8.7)
[2023-01-07 12:57] LABS: Lithium 0.1 mmol/L (0.6-1.2)
== END 2023-01-07 11:17 | disposition home or self-care (01) ==
PROVIDERS: PCP Nurse Practitioner; Visit Provider Internal Medicine
DX: Z79.899 Other long term (current) drug therapy (principal); G89.29 Other chronic pain
CPT/HCPCS: 36415; 80053; 80178; 84439; 84443; 85025; 85651

== ENCOUNTER → 2023-01-19 11:08 | Outpatient (BNVA) | payer MEDICARE, MEDICAID, SELFPAY | PROVIDERS: PCP Nurse Practitioner; Visit Provider Specialist | DX: G31.84 Mild cognitive impairment of uncertain or unknown etiology (principal); G89.29 Other chronic pain; F15.21 Other stimulant dependence, in remission; Z87.891 Personal history of nicotine dependence | CPT/HCPCS: 99214 ==

== ENCOUNTER → 2023-02-28 10:30 | Outpatient (BNVA) | payer MEDICARE, MEDICAID, SELFPAY | PROVIDERS: PCP Nurse Practitioner; Referring Provider Specialist; Visit Provider Specialist | DX: G31.84 Mild cognitive impairment of uncertain or unknown etiology (principal) | CPT/HCPCS: 95816 ==

== ENCOUNTER → 2023-04-11 10:53 | Outpatient (BNVA) | payer MEDICARE, MEDICAID, SELFPAY | PROVIDERS: PCP Nurse Practitioner; Visit Provider Internal Medicine | DX: M54.12 Radiculopathy, cervical region (principal); M51.36 Other intervertebral disc degeneration, lumbar region; K90.0 Celiac disease; R76.8 Other specified abnormal immunological findings in serum; Z79.899 Other long term (current) drug therapy | CPT/HCPCS: 36415; 80053; 82550; 85025; 85651; 86140; 99214 ==

== ENCOUNTER 2023-04-29 13:07 | Outpatient (CLI) | payer MEDICARE, MEDICAID, SELFPAY ==
--- NOTE | 2023-04-29 13:21 | XR_ITS ---
WS: [email or web address] EXAMINATION: XR acute abdomen series [id number] REASON FOR EXAM: chronic constipation COMPARISON: None available. ORDER DATE: 04/29/2023 1:26 PM TECHNIQUE: Frontal chest x-ray and frontal upright and supine x-rays of the abdomen were obtained. X-RAY FINDINGS: Lungs are clear of infiltrate with numerous scattered granulomatous calcifications. Cardiac mediasti nal silhouette is normal. No pleural effusions or pneumothorax. There is no free intraperitoneal air. Gas is scattered throughout small and large bowel in a normal, nonobstructive manner. No abnormal calcifications. Soft tissue and osseous structures are unremarkabl e. The expected amount of stool is present throughout the colon. There is surgical instrumentation from lumbar fusion from L4-S1. Very minimal scoliosis noted. Previous surgical clips noted from cholecyste ctomy. IMPRESSION: No acute findings in the chest, abdomen, or pelvis.
== END 2023-04-29 13:08 | disposition home or self-care (01) ==
LOC: RAD 13:10
PROVIDERS: PCP Nurse Practitioner; Visit Provider Nurse Practitioner
DX: K59.09 Other constipation (principal)
CPT/HCPCS: 74022

== ENCOUNTER → 2023-05-31 10:12 | Outpatient (BNVA) | payer MEDICARE, MEDICAID, SELFPAY | PROVIDERS: PCP Nurse Practitioner; Visit Provider Internal Medicine | DX: M51.36 Other intervertebral disc degeneration, lumbar region (principal); K90.0 Celiac disease; R76.8 Other specified abnormal immunological findings in serum | CPT/HCPCS: 99214 ==

== ENCOUNTER → 2023-07-19 13:54 | Outpatient (BNVA) | payer MEDICARE, MEDICAID, SELFPAY | PROVIDERS: PCP Nurse Practitioner; Visit Provider Specialist | DX: G43.711 Chronic migraine without aura, intractable, with status migrainosus (principal); J44.9 Chronic obstructive pulmonary disease, unspecified | CPT/HCPCS: 99214 ==

== ENCOUNTER 2023-11-04 11:14 | Outpatient (CLI) | payer MEDICARE, MEDICAID, SELFPAY ==
[2023-11-04 11:42] LABS: Basophils # 0.1 10^3/uL (0.0-0.1); Eosinophils # 0.1 10^3/uL (0.0-0.8); Eosinophils % 1.2 %; Hematocrit 35.3 % (36-47); Lymphocytes # 2.4 10^3/uL (0.8-4.8); Lymphocytes % 45.7 %; Mean Corpuscular HGB Conc 33.7 g/dL (30-55); Mean Corpuscular Hemoglobin 32.3 pg (27-33); Mean Corpuscular Volume 95.9 fl (85-98); Mean Platelet Volume 10.5 fL (7.4-10.4); Monocytes # 0.4 10^3/uL (0.2-0.9); Monocytes % 8.3 %; Neutrophils # 2.28 10^3/uL (1.8-7.7); Neutrophils % 43.8 %; Nucleated Red Blood Cells % 0 %; Platelet Count 160 10^3/cmm (157-399); Red Blood Count 3.68 10^6/uL (3.85-5.65); Red Cell Distribution Width 12.6 % (12.1-15.1); White Blood Count 5.19 10^3/uL (3.29-11.43)
[2023-11-04 12:02] LABS: Alanine Aminotransferase 9 U/L (0-33); Albumin Level 4.3 g/dL (3.5-5.2); Alkaline Phosphatase 67 U/L (35-105); Aspartate Amino Transferase 14 U/L (0-32); Globulin 2.8 g/dL (1.3-4.6); Glomerular Filtration Rate 63.9 mL/min (90-130); Total Bilirubin 0.4 mg/dL (0.15-1.2); Total Protein 7.1 g/dL (6.6-8.7)
[2023-11-04 12:38] LABS: Erythrocyte Sedimentation Rate 1 mm/hr (0-15)
== END 2023-11-04 11:15 | disposition home or self-care (01) ==
LOC: LAB 11:17
PROVIDERS: PCP Nurse Practitioner; Visit Provider Internal Medicine Rheumatology
DX: Z79.899 Other long term (current) drug therapy (principal)
CPT/HCPCS: 36415; 80076; 82565; 85025; 85651; 86140

== ENCOUNTER 2024-01-17 09:44 | Outpatient (CLI) | payer BC, MEDICAID, SELFPAY | END 2024-01-17 09:45 | disposition home or self-care (01) | LOC: LAB 09:46 | PROVIDERS: PCP Nurse Practitioner; Visit Provider Nurse Practitioner | DX: E03.9 Hypothyroidism, unspecified (principal) | CPT/HCPCS: 36415 ==

== ENCOUNTER → 2024-04-12 13:58 | Outpatient (BNVA) | payer BC, MEDICAID, SELFPAY | PROVIDERS: PCP Nurse Practitioner; Visit Provider Nurse Practitioner | DX: E03.9 Hypothyroidism, unspecified (principal); E55.9 Vitamin D deficiency, unspecified | CPT/HCPCS: 80053; 82306; 82607; 84443 ==

== ENCOUNTER 2024-04-24 09:42 | Outpatient (CLI) | payer BC, MEDICAID, SELFPAY ==
--- NOTE | 2024-04-24 10:30 | MM_ITS ---
WS: [email or web address] BILATERAL SCREENING DIGITAL TOMOSYNTHESIS MAMMOGRAM WITH CAD HISTORY: Z12.31 - Encounter for screening mammogram for malignant ... COMPARISON: 12/02/2022, 01/07/2014 Bilateral CC and MLO views with tomosynthesis and synthetic mammography submitted. Computer aided det ection analyzed. Breast composition: The breasts are extremely dense, which lowers the sensitivity of mammography. No suspicious masses, microcalcifications or architectural distortion. MM/[place] [id number] IMPRESSION: BI-RADS: 1-Negative FOLLOW UP: 1 Year Follow-up
== END 2024-04-24 09:43 | disposition home or self-care (01) ==
LOC: RAD 09:42
PROVIDERS: PCP Nurse Practitioner; Visit Provider Nurse Practitioner
DX: Z12.31 Encounter for screening mammogram for malignant neoplasm of breast (principal)
CPT/HCPCS: 77063; 77067

== ENCOUNTER 2024-05-07 22:16 | Emergency (ER) | payer BC, MEDICAID, SELFPAY ==
[2024-05-07 22:17] VITALS: BP 206/140; PULSE 79; RESP 18; TEMP 36.7; O2SAT 100; BMI 25.6
[2024-05-07 22:33] VITALS: PULSE 72; RESP 20; O2SAT 100
--- NOTE | 2024-05-07 22:34 | XRR_ITS ---
PROCEDURE INFORMATION: Exam: XR Chest Exam date and time: 05/07/2024 10:49 PM Age: 58 years old Clinical indication: Shortness of breath; Additional info: Sob/cp TECHNIQUE: Imaging protocol: Radiologic exam of the chest. Views: 1 view. COMPARISON: CR XR chest 2V* [id number] 10/31/2018 3:09 PM FINDINGS: Lungs: No CHF/pulmonary edema. Numerous small calcified granulomas again seen in both lungs. Visible lungs otherwise appear essentially clear. Pleural spaces: No visible pneumothorax. No definite pleural fluid. Heart/Mediastinum: Heart size is within normal limits. Bones/joints: Prior lower cervical spine fusion surgery. XR/XR chest 1V portable [id number] IMPRESSION: 1. No definite CHF or pneumonia. 2. Other findings discussed above.
--- NOTE | 2024-05-07 22:35 | CTR_ITS ---
PROCEDURE INFORMATION: Exam: CT Abdomen And Pelvis With Contrast Exam date and time: 05/08/2024 12:13 AM Age: 58 years old Clinical indication: Abdominal pain; Generalized; Additional info: Upper abd pain TECHNIQUE: Imaging protocol: Computed tomography of the abdomen and pelvis with contrast. Radiation optimization: All CT scans at this facility use at least one of these dose optimization techniques: automated exposure control; mA and/or kV adjustment per patient size (includes targeted exams where dose is matched to clinical indication); or iterative reconstruction. Contrast material: OMNI 350; Contrast volume: 100 ml; Contrast route: INTRAVENOUS (IV); COMPARISON: No relevant prior studies available. RADIATION DOSE METRICS: Total DLP (mGy-cm): 482.1 FINDINGS: Lungs: Multiple calcified granulomas in the lower lungs. No significant acute finding in the lower lungs. No pleural fluid. Esophagus: Possible mild mucosal/wall thickening involving the lower esophagus, although this could be a transient appearance. While nonspecific, the findings could represent evidence for esophagitis. Neoplasm much less likely, not entirely excluded. Please correlate clinically. Liver: There is fatty infiltration of the liver. Gallbladder and biliary ducts: Prior cholecystectomy. Borderline/mild extrahepatic biliary tree dilation, with common duct measuring up to about 11 mm. Mild intrahepatic biliary prominence. No visible common duct stone by CT. Significance uncertain. Correlation with laboratory/bilirubin levels may be helpful to determine if there is any significant biliary obstruction. Pancreas: Unremarkable. Spleen: Unremarkable. Adrenal glands: Unremarkable. Kidneys and ureters: Unremarkable. Stomach and bowel: Possibility of slightly thickened mucosa/wall in the distal stomach. This is a nonspecific appearance, and may well be transient due to poor gastric distension. This might also represent evidence for gastritis or peptic ulcer disease. Please correlate clinically. No significant bowel distention. There are no CT findings to strongly suggest diverticulitis. Appendix: The appendix is not identified with certainty, however no pericecal inflammatory changes are seen. Intraperitoneal space: No free intraperitoneal air, or ascites. Vasculature: No evidence for abdominal aortic aneurysm. Lymph nodes: No retroperitoneal adenopathy. Urinary bladder: No visible calculus in the urinary bladder. Reproductive: Apparent prior hysterectomy. No definite ovarian/adnexal cyst or mass by CT. Bones/joints: Prior lumbar spine fusion surgery from L4 through S1. Soft tissues: No significant acute finding. CT/CT abdomen pelvis w con* [id number] IMPRESSION: 1. No free air or significant bowel distention. 2. Possible thickened mucosa/wall in the distal stomach, see above discussion. 3. No evidence to suggest appendicitis, however a normal appendix is not definitely visible. 4. Prior cholecystectomy. Borderline/mild biliary tree prominence, see above discussion. 5. Possibly some thickening of the lower esophagus, see above discussion. 6. Other findings discussed above.
--- NOTE | 2024-05-07 22:38 | ED_ITS ---
HPI - Abdominal Pain 2 General: Chief Complaint: Abdominal Pain Stated Complaint: nausea, abd pain Time Seen by Provider: 05/07/24 22:21 Source: patient Mode of arrival: EMS Limitations: no limitations History of Present Illness: Patient is a 58-year-old female presenting to the emergency department by ambulance for acute on chronic abdominal pain. States that she has been dealing that for about 1 to 2 months, but has worsened over the past couple of hours. She has been to the ER multiple times and had multiple workups done, has never had anything found. States that she has a scope scheduled, however it is not until August and she cannot take the pain anymore. Reports her pain is to her upper abdominal area mainly, has had associated nausea and multiple episodes of vomiting. Also reports chronic bowel changes. She arrives with elevated blood pressure likely secondary to pain, and does appear extremely anxious on physical examination and is actively dry heaving. Patient reportedly stopped taking Wellbutrin. States she was not doing anything with onset of acute pain, rates it a 10 out of 10 at this time. No specific alleviating or exacerbating factors noted at this time. No medications reported. She comments that she hurts all over and even my hair hurts. MD elicited complaint: abdominal pain Onset (ago): month(s) Pain Consistency: constant Location: Other (Upper) Severity: severe Pain scale (0-10): 10 Radiation: none Associated Symptoms: Reports change in bowel habits, nausea and vomiting; Denies bloating, chills, dysuria, fever(s) and hematochezia Related Data Home Medications Medication Instructions Recorded Confirmed mecobalamin (vitamin B12) 1,000 1,000 mcg sublingual DAILY 07/10/20 04/12/24 mcg disintegrating tablet,sublingual famotidine 40 mg tablet 40 mg PO BID PRN acid reflux 10/18/22 04/12/24 topiramate 25 mg tablet 25 mg PO BID 04/04/23 04/12/24 buprenorphine HCl 8 mg sublingual 16 mg sublingual DAILY 04/12/24 04/12/24 tablet Previous Rx's Medication Instructions Recorded thiamine HCl (vitamin B1) 100 mg 100 mg PO DAILY #30 tabs 09/16/22 tablet diclofenac sodium 1 % topical gel 4 g topical QID #100 grams 08/04/23 (Arthritis Pain (diclofenac)) hydroxychloroquine 200 mg tablet 200 mg PO BID #180 tabs 08/04/23 estradiol 0.025 mg/24 hr 1 patch transdermal .twice weekly 10/20/23 semiweekly transdermal patch 30 days #8 ea estradiol 0.01% (0.1 mg/gram) See Rx Instructions .Route 12/15/23 vaginal cream .COMPLEX #42.5 grams acyclovir 400 mg tablet 400 mg PO DAILY PRN cold sores #30 01/10/24 tabs cyclobenzaprine 10 mg tablet 10 mg PO BID PRN muscle spasm #60 01/10/24 tabs naloxegol 12.5 mg tablet (Movantik) 12.5 mg PO QAM #30 tabs 04/12/24 albuterol sulfate 90 mcg/actuation 2 puff inhalation Q6H PRN 04/13/24 aerosol inhaler shortness of breath or wheezing #8.5 grams cetirizine 10 mg tablet (Zyrtec) 10 mg PO DAILY allergy symptoms 04/13/24 #30 tabs cholecalciferol (vitamin D3) 125 125 mcg PO DAILY #30 caps 04/13/24 mcg (5,000 unit) capsule fluticasone propionate 50 2 spray intranasal DAILY PRN 04/13/24 mcg/actuation nasal allergy symptoms #16 grams spray,suspension (Flonase Allergy Relief) Allergies Allergy/AdvReac Type Severity Reaction Status Date / Time methocarbamol Allergy Severe ALGY-Swell Verified 05/07/24 22:24 Lip/Tongue/Throat baclofen Allergy Intermediate ALGY-Swell Verified 05/07/24 22:24 Lip/Tongue/Throat amitriptyline Allergy Mild ALGY-Rash Verified 05/07/24 22:24 aspartame Allergy upset Verified 05/07/24 22:24 GI/bad hedadache gabapentin Allergy Unknown Verified 05/07/24 22:24 hydroxyzine Allergy Unknown Verified 05/07/24 22:24 tizanidine Allergy Unknown Verified 05/07/24 22:24 zonisamide Allergy Unknown Verified 05/07/24 22:24 eggs Allergy Intermediate ADR-Vomitin Uncoded 05/07/24 22:24 g Fillers on generic AdvReac Severe Hives, Uncoded 05/07/24 22:24 medications extreme swelling, rash. Hydrochlorathiazide AdvReac Intermediate Itching. Uncoded 05/07/24 22:24 Review of Systems 2 General: Reports: 10 or more systems reviewed and unremarkable except in HPI and below Const: Denies: fever(s), chills, change in appetite, change in weight or diaphoresis ENMT: Denies: throat pain or hoarseness Card: Denies: chest pain, palpitations or lightheadedness Resp: Denies: dyspnea, productive cough or wheezing GI: Reports: abdominal pain, nausea, vomiting and change in bowel habits; Denies: bloating or hematochezia : Denies: flank pain, difficulty voiding, dysuria, urinary frequency or urinary urgency Musc: Denies: neck pain or back pain Skin/Breast: Denies: rash or new lesions Neuro: Denies: headache(s) or dizziness PFSH ED 2 PFSH: Medical History Severe alcohol use disorder Severe cannabis use disorder Post-traumatic stress disorder, chronic CKD stage G2/A1, GFR 60-89 and albumin creatinine ratio <30 mg/g Pelvic pain Psychiatric care Seasonal allergies Herpes simplex COPD (chronic obstructive pulmonary disease) Cannabis dependence, in remission Alcohol dependence, in remission Other stimulant dependence, in remission Post-traumatic stress disorder, chronic Schizoaffective disorder, depressive type Constipation due to pain medication Seasonal affective disorder Degenerative disc disease, lumbar Chronic back pain Surgical History History of total hysterectomy with bilateral salpingo-oophorectomy (BSO) History of cervical spinal surgery October 04, 2019 History of hysterectomy History of cholecystectomy History of tubal ligation History of tonsillectomy Family History Other Cancer Dementia Diabetes Hypertension Stroke Denies family history of Colon cancer Ovarian cancer Heart disease Hyperlipidemia Breast cancer Uterine cancer Thyroid disease Social History Smoking and tobacco/nicotine status: current every day tobacco/nicotine user (no plan to stop) Second hand smoke exposure: No Alcohol intake: former Substance/Drug Use: former Adopted: No Caregiver/support person: No Lives independently: Yes Housing: House Marital status: Single service: No Do you think of yourself as: Straight/Heterosexual Current gender identity: Female Physical Exam 2 Const: COMMON NORMALS: average body habitus, patient oriented x3, no limitations, healthy appearing, alert and well nourished GENERAL APPEARANCE: cooperative and anxious ORIENTATION/CONSCIOUSNESS: Yes awake HENMT: COMMON NORMALS: normocephalic, atraumatic, hearing grossly normal bilaterally, external ears normal, Normal external nose present, Normal nasal mucous membranes and turbinates present and moist oral mucous membranes HEAD & SCALP: normocephalic and atraumatic NOSE: Normal external nose present and Normal nasal mucous membranes and turbinates present EXTERNAL EAR: Yes external ears normal Eye: COMMON NORMALS: Equal, round and reactive pupils present, EOMs intact bilaterally, conjunctivae normal and normal visual clark by confrontation C ONJUNCTIVA: Yes conjunctivae normal PUPIL: Yes Equal, round and reactive pupils present Neck/C-Spine: COMMON NORMALS: full ROM, supple, no meningeal signs and no JVD Resp: COMMON NORMALS: normal respiratory effort, No retractions, No use of accessory muscles and clear to auscultation bilaterally AUSCULTATION: clear to auscultation bilaterally, no crackles, no rales, no rhonchi and no wheezes Cardio: COMMON NORMALS: no JVD, regular rate, regular rhythm, S1 normal heart sound present, S2 normal heart sound present, No gallops present (Cardio), No clicks present (Cardio), No murmurs present (Cardio), No rub (Cardio) and Peripheral pulses 2+ throughout RATE: regular rate RHYTHM: regular rhythm HEART SOUNDS: S1 normal heart sound present and S2 normal heart sound present PERIPHERAL PULSES: Peripheral pulses 2+ throughout GI: COMMON NORMALS: Normal to inspection, nondistended, normoactive bowel sounds present, Soft to palpation, No hepatosplenomegaly present and no masses AUSCULTATION: Yes normoactive bowel sounds PALPATION: Yes Soft to palpation, Yes Tenderness to palpation present (GI) (Upper abdominal TTP), No Guarding due to palpation present (GI), No Rigid due to palpation and Yes No hepatosplenomegaly present RECTAL EXAM: deferred : COMMON NORMALS: Yes no CVA tenderness BLADDER/KIDNEY EXAM: Yes no CVA tenderness Back/Pelvis: COMMON NORMALS: no CVA tenderness Extremity: COMMON NORMALS: normal to inspection and full ROM Neuro: COMMON NORMALS: patient oriented x3, moves all extremities, no focal motor deficits and no sensory deficits noted SENSORIUM/ORIENTATION: Yes alert MENINGEAL SIGNS: Yes no meningeal signs Psych: COMMON NORMALS: mental status grossly normal Skin: COMMON NORMALS: no rashes or lesions noted GENERAL SKIN EXAM: no rashes or lesions noted Course 2 Vital Signs: Vital signs: Vital Signs Temperature 98.0 F 05/07/24 22:17 Pulse Rate 83 05/08/24 02:00 Respiratory Rate 18 05/08/24 02:00 Blood Pressure 190/94 05/08/24 02:00 Pulse Oximetry 99 05/08/24 02:00 Oxygen Delivery Me thod Room Air 05/08/24 00:54 MDM - Abdominal Pain Medical Decision Making Patient came to the emergency department by ambulance due to acute on chronic abdominal pain, of which she reports being seen multiple times in the emergency department and has a scope scheduled in August. However states that it is getting too severe, associated with nausea vomiting as well as some chronic bowel changes. She was severely anxious on exam, however overall her abdominal exam unremarkable and clinically did not appear to have an acute abdomen. Labs obtained and all were unremarkable, in addition to this a CT was ordered and did not show any acute surgical findings or concerning findings that would explain her pain. I do think that she would benefit from direct visualization with endoscopy/colonoscopy, and informed her to get with her surgeon to see if she can arrange for an earlier date. She was given morphine here in the emergency department as well as few doses of Zofran and fluids, and discharged home in improved condition in terms of her pain and symptoms. She will continue her medications at home and outpatient follow-up as planned. Return precautions given. Case discussed with Dr. Weaver. Lab Data 05/07/24 22:49 05/07/24 23:31 Labs/Radiology: Radiology Impressions Chest X-Ray 05/07/24 22:34 IMPRESSION: 1. No definite CHF or pneumonia. 2. Other findings discussed above. Abdomen/Pelvis CT 05/07/24 22:35 IMPRESSION: 1. No free air or significant bowel distention. 2. Possible thickened mucosa/wall in the distal stomach, see above discussion. 3. No evidence to suggest appendicitis, however a normal appendix is not definitely visible. 4. Prior cholecystectomy. Borderline/mild biliary tree prominence, see above discussion. 5. Possibly some thickening of the lower esophagus, see above discussion. 6. Other findings discussed above. Laboratory Results WBC 8.31 10^3/uL (3.29-11.43) 05/07/24 22:49 RBC 4.38 10^6/uL (3.85-5.65) 05/07/24 22:49 Hgb 14.10 g/dL (11.27-16.99) 05/07/24 22:49 Hct 41.6 % (36-47) 05/07/24 22:49 MCV 95.0 fl (85-98) 05/07/24 22:49 MCH 32.2 pg (27-33) 05/07/24 22:49 MCHC 33.9 g/dL (30-55) 05/07/24 22:49 RDW 11.8 % (12.1-15.1) L 05/07/24 22:49 Plt Count 228 10^3/cmm (157-399) 05/07/24 22:49 MPV 11.6 fL (7.4-10.4) H 05/07/24 22:49 Neut % (Auto) 63.3 % 05/07/24 22:49 Lymph % (Auto) 27.6 % 05/07/24 22:49 [place] % (Auto) 7.6 % 05/07/24 22:49 Eos % (Auto) 0.8 % 05/07/24 22:49 Baso % (Auto) 0.5 % 05/07/24 22:49 Neut # (Auto) 5.26 10^3/uL (1.8-7.7) 05/07/24 22:49 Lymph # (Auto) 2.3 10^3/uL (0.8-4.8) 05/07/24 22:49 [place] # (Auto) 0.6 10^3/uL (0.2-0.9) 05/07/24 22:49 Eos # (Auto) 0.1 10^3/uL (0.0-0.8) 05/07/24 22:49 Baso # (Auto) 0.0 10^3/uL (0.0-0.1) 05/07/24 22:49 Nucleated RBC % (auto) 0 % 05/07/24 22:49 Nucleated RBCs # 0.0 /100WBC 05/07/24 22:49 Sodium 138 mmol/L (136-145) 05/07/24 23:31 Potassium 3.5 mmol/L (3.5-5.1) 05/07/24 23:31 Chloride 100 mmol/L (98-107) 05/07/24 23:31 Carbon Dioxide 21 mmol/L (22-29) L 05/07/24 23:31 Anion Gap 20.5 (5-19) H 05/07/24 23:31 BUN 8 mg/dL (8-23) 05/07/24 23:31 Creatinine 0.8 mg/dL (0.5-0.9) 05/07/24 23:31 GFR Calculation 73.2 mL/min (90-130) L 05/07/24 23:31 Glucose 101 mg/dL (65-115) 05/07/24 23:31 Calculated Osmolality 284 mOsm/kg (285-295) L 05/07/24 23:31 Calcium 9.5 mg/dL (8.5-10.5) 05/07/24 23:31 Total Bilirubin 0.6 mg/dL (0.15-1.2) 05/07/24 23:31 AST 35 U/L (0-32) H 05/07/24 23:31 ALT 30 U/L (0-33) 05/07/24 23:31 Alkaline Phosphatase 69 U/L (35-105) 05/07/24 23:31 Troponin T Baseline < 6 ng/L (0-10) 05/07/24 23:31 Total Protein 8.4 g/dL (6.6-8.7) 05/07/24 23:31 Albumin 5.0 g/dL (3.5-5.2) 05/07/24 23:31 Globulin 3.4 g/dL (1.3-4.6) 05/07/24 23:31 Lipase 22 U/L (13-60) 05/07/24 23:31 Urine Color Yellow (Yellow) 05/08/24 01:00 Urine Appearance Clear (CLEAR) 05/08/24 01:00 Urine pH 6.5 (5-7) 05/08/24 01:00 Ur Specific [place] 1.029 (1.005-1.030) 05/08/24 01:00 Urine Protein Negative (Negative) 05/08/24 01:00 Urine Glucose (UA) Negative (Normal) 05/08/24 01:00 Urine Ketones Trace (Negative) 05/08/24 01:00 Urine Blood Non-haemolysed trace (Negative) 05/08/24 01:00 Urine Nitrate Negative (Negative) 05/08/24 01:00 Urine Bilirubin Negative (Negative) 05/08/24 01:00 Urine Urobilinogen 0.2 mg/dL (Negative) 05/08/24 01:00 Ur Leukocyte Esterase Trace (Negative) A 05/08/24 01:00 Urine RBC 0-4 /hpf (0-2) H 05/08/24 01:00 Urine WBC None /hpf (0-5) 05/08/24 01:00 Ur Squamous Epith Cells 0-4 /hpf (0-5) H 05/08/24 01:00 Amorphous Sediment Not Reportable 05/08/24 01:00 Urine Bacteria None /hpf (NONE) 05/08/24 01:00 All radiology interpretation(s) finalized by discharge Discharge Plan Discharge Patient Disposition: Home Clinical Impression: Chronic abdominal pain Condition: Stable Prescriptions: No Action mecobalamin (vitamin B12) 1,000 mcg tablet,disintegrating 1,000 mcg SUBLINGUAL DAILY Rx Instructions: place tablet under tongue and allow to dissolve for at least30 secs before swallowing famotidine 40 mg tablet 40 mg PO BID PRN (Reason: acid reflux) topiramate 25 mg tablet 25 mg PO BID buprenorphine HCl 8 mg tablet, sublingual 16 mg sublingual DAILY acyclovir 400 mg tablet 400 mg PO DAILY PRN (Reason: cold sores) Qty: 30 2RF cyclobenzaprine 10 mg tablet 10 mg PO BID PRN (Reason: muscle spasm) Qty: 60 5RF Movantik 12.5 mg tablet 12.5 mg PO QAM Qty: 30 0RF Rx Instructions: must be taken on empty stomach; no food 1 hr after or 2-3 hrs before dose albuterol sulfate 90 mcg/actuation HFA aerosol inhaler 2 puff inhalation Q6H PRN (Reason: shortness of breath or wheezing) Qty: 8.5 2RF cetirizine [Zyrtec] 10 mg tablet 10 mg PO DAILY Qty: 30 5RF cholecalciferol (vitamin D3) 125 mcg (5,000 unit) capsule 125 mcg PO DAILY Qty: 30 5RF fluticasone propionate [Flonase Allergy Relief] 50 mcg/actuation spray,suspension 2 spray intranasal DAILY PRN (Reason: allergy symptoms) Qty: 16 5RF Rx Instructions: administer into each nostril No meds sent diclofenac sodium [Arthritis Pain (diclofenac)] 1 % gel 4 g topical QID Qty: 100 2RF Rx Instructions: apply to single knee, ankle, foot; for foot includes sole/toes/top of foot hydroxychloroquine 200 mg tablet 200 mg PO BID Qty: 180 1RF thiamine HCl (vitamin B1) 100 mg tablet 100 mg PO DAILY Qty: 30 0RF estradiol 0.025 mg/24 hr patch semiweekly 1 patch transdermal .twice weekly 30 Days Qty: 8 6RF estradiol 0.01 % (0.1 mg/gram) cream See Rx Instructions .ROUTE .COMPLEX Qty: 42.5 1RF Dose Instruction: USE ONE APPLICATORFUL VAGINALLY TWICE WEEKLY Rx Instructions: USE ONE APPLICATORFUL VAGINALLY TWICE WEEKLY Discharge Orders: Discharge ED (Routine); Ordered 05/08/24 Ordered By: Aidan Byrd Referrals: Mely Thornton, TELEPHONE MAINTAINER-C [Primary Care Provider] - Discharge Diet: As Directed Discharge Activity: Increase activity as tolerated Patient Instructions: Abdominal Pain (ED), Opioid Safety, Pain Management Activity Restrictions/Additional Instructions: Please keep follow-up with general surgeon for scope. Continue medications at home. Plenty of fluids. Follow-up with primary care and return with any new or worsening. Coding Level of Care Code ED Converter Operator for Jerry Kerr
[2024-05-07 23:01] LABS: Basophils % 0.5 %; Eosinophils # 0.1 10^3/uL (0.0-0.8); Eosinophils % 0.8 %; Hematocrit 41.6 % (36-47); Lymphocytes # 2.3 10^3/uL (0.8-4.8); Lymphocytes % 27.6 %; Mean Corpuscular HGB Conc 33.9 g/dL (30-55); Mean Corpuscular Hemoglobin 32.2 pg (27-33); Mean Platelet Volume 11.6 fL (7.4-10.4); Monocytes # 0.6 10^3/uL (0.2-0.9); Monocytes % 7.6 %; Neutrophils # 5.26 10^3/uL (1.8-7.7); Neutrophils % 63.3 %; Nucleated Red Blood Cells % 0 %; Platelet Count 228 10^3/cmm (157-399); Red Blood Count 4.38 10^6/uL (3.85-5.65); Red Cell Distribution Width 11.8 % (12.1-15.1); White Blood Count 8.31 10^3/uL (3.29-11.43)
[2024-05-07 23:13] VITALS: RESP 18
[2024-05-07] MEDS: morphine 4 mg/mL SDV 1 mL IVP (23:13)
[2024-05-07] MEDS: sodium chloride 0.9% 1,000 ML 999 ML IV (23:13)
[2024-05-07] MEDS: ondansetron 2 mg/ML SDV 2 mL 4 MG IVP ×2 (23:13→23:57)
[2024-05-07] MEDS: LORazepam 2 mg/mL INJ 1 mL 1 MG IVP (23:28)
--- NOTE | 2024-05-07 23:34 | ECG_ITS ---
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 Measurements Intervals [place] Rate: 61 P: 71 PA: 136 QRS: 80 QRSD: 80 T: 77 QT: 391 QTc: 395 Interpretive Statements SINUS RHYTHM WITH MARKED SINUS ARRHYTHMIA SEPTAL MYOCARDIAL INFARCTION , OF INDETERMINATE AGE [40+ ms Q WAVE IN V1/V2] Compared to ECG 01/05/2021 00:02:59 Myocardial infarct finding now present Electronically Signed On 05-08-2024 16:42:15 CDT by Rosas Anderson M.D. [id number]
[2024-05-08] VITALS (14 sets, daily range): BP systolic 177–190; BP diastolic 80–94; PULSE 58–87; RESP 12–23; O2SAT 78–100
[2024-05-08 00:05] LABS: Alanine Aminotransferase 30 U/L (0-33); Alkaline Phosphatase 69 U/L (35-105); Anion Gap 20.5 (5-19); Aspartate Amino Transferase 35 U/L (0-32); Blood Urea Nitrogen 8 mg/dL (8-23); Calcium 9.5 mg/dL (8.5-10.5); Carbon Dioxide 21 mmol/L (22-29); Chloride 100 mmol/L (98-107); Globulin 3.4 g/dL (1.3-4.6); Glomerular Filtration Rate 73.2 mL/min (90-130); Glucose 101 mg/dL (65-115); Lipase 22 U/L (13-60); Osmolality Calculated 284 mOsm/kg (285-295); Potassium 3.5 mmol/L (3.5-5.1); Sodium 138 mmol/L (136-145); Total Bilirubin 0.6 mg/dL (0.15-1.2); Total Protein 8.4 g/dL (6.6-8.7)
[2024-05-08 00:18] LABS: Troponin(5th) Baseline < 6 ng/L (0-10)
[2024-05-08] MEDS: iohexol 350 mg/mL 500 mL Btl (per mL) IV (00:25)
[2024-05-08 01:05] LABS: Charge for UA Resulting for Rev
[2024-05-08 01:10] LABS: Bilirubin Urine Negative (Negative); Blood Urine Non-haemolysed trace (Negative); Glucose Urine UA Negative (Normal); Ketones Urine Trace (Negative); Leukocyte Esterase Urine Trace (Negative); Nitrate Urine Negative (Negative); Protein Urine Negative (Negative); Specific Gravity, Urine 1.029 (1.005-1.030); Urine Appearance Clear (CLEAR); Urine Color Yellow (Yellow); Urobilinogen Urine 0.2 mg/dL (Negative); pH Urine 6.5 (5-7)
[2024-05-08 01:13] LABS: UA Manual Slide Review YES
[2024-05-08 01:38] LABS: RBC Urine 0-4 /hpf (0-2)
[2024-05-08 01:39] LABS: Add Urine Culture? No; Squamous Epithelial Cell Urine 0-4 /hpf (0-5)
== END 2024-05-08 02:01 | disposition home or self-care (01) ==
PROVIDERS: Emergency Provider Physician Assistant; PCP Nurse Practitioner
DX: G89.29 Other chronic pain (principal); R10.10 Upper abdominal pain, unspecified; N18.9 Chronic kidney disease, unspecified; J44.9 Chronic obstructive pulmonary disease, unspecified; F17.210 Nicotine dependence, cigarettes, uncomplicated
CPT/HCPCS: 36415; 71045; 74177; 80053; 81003; 81015; 83690; 84484; 85025; 93005; 96361; 96374; 96375; 96376; 99285; J2060; J2270; J2405; J7030

== ENCOUNTER 2024-06-28 14:46 | Outpatient (CLI) | payer MEDICARE, MEDICAID, SELFPAY ==
--- NOTE | 2024-06-28 15:00 | XR_ITS ---
WS: [id number] SCREENING DEXA SCAN [employer] CLINICAL INFORMATION: Z78.0 - Asymptomatic menopausal state COMPARISON: None. FINDINGS: The LEFT forearm bone mineral density measures 0.774. This corresponds to a T score score of -1.2 and Z score of - 0.2. Left femoral neck bone mineral density measures 1.021 g/cm2. This corresponds to a T score of 0.1 and Z score of 1.0. Right femoral neck bone mineral density measures 1.051 g/cm2. This corresponds to a T score 0.3of and Z score of 1.3. Mean femoral neck bone mineral density measures 1.036 g/cm2. This corresponds to a T score of 0.2 and Z score of 1.2. XR/XR DEXA axial skeleton* 55990 IMPRESSION: Osteopenia LEFT forearm Normal bone mineralization femoral necks. Patient's FRAX calculated 10 year probability for major osteoporotic fracture i s 16.2% and osteoporotic hip fracture is 0.2%.
== END 2024-06-28 14:47 | disposition home or self-care (01) ==
LOC: RAD 14:48
PROVIDERS: PCP Nurse Practitioner; Visit Provider Nurse Practitioner
DX: Z13.820 Encounter for screening for osteoporosis (principal); Z78.0 Asymptomatic menopausal state; M85.80 Other specified disorders of bone density and structure, unspecified site
CPT/HCPCS: 77080

== ENCOUNTER → 2024-10-10 15:16 | Outpatient (BNVA) | payer MEDICARE, MEDICAID, SELFPAY | PROVIDERS: PCP Nurse Practitioner; Visit Provider Nurse Practitioner | DX: E03.9 Hypothyroidism, unspecified (principal); Z13.6 Encounter for screening for cardiovascular disorders | CPT/HCPCS: 80053; 80061; 84443; 85025 ==

== ENCOUNTER 2024-11-07 08:53 | Outpatient (RCR) | payer MEDICARE, MEDICAID, SELFPAY | END 2024-12-03 23:59 | disposition home or self-care (01) | LOC: SPT 08:53 | PROVIDERS: PCP Nurse Practitioner; Visit Provider Neurological Surgery | DX: M54.50 Low back pain, unspecified (principal) | CPT/HCPCS: 97110; 97162 ==

== ENCOUNTER 2024-12-04 05:00 | Outpatient (RCR) | payer MEDICARE, MEDICAID, SELFPAY | END 2025-01-02 23:59 | disposition home or self-care (01) | LOC: SPT 05:00 | PROVIDERS: PCP Nurse Practitioner; Visit Provider Neurological Surgery | DX: M54.50 Low back pain, unspecified (principal) | CPT/HCPCS: 97110 ==

== ENCOUNTER 2025-01-18 10:36 | Outpatient (CLI) | payer MEDICARE, MEDICAID, SELFPAY ==
--- NOTE | 2025-01-18 10:56 | XR_ITS ---
WS: [id number] Exam: XR [id number] Date/Time of Exam: 01/18/2025 11:12 AM Reason For Exam: CHRONIC DIARRHEA No bowel obstruction or free air. No sign of organ enlargement. Signs of prior cholecystectomy. Moderately distended urinary bladder. There is fusion of the spine from L4-S1. Remaining bony structures are intact. XR/XR KUB [id number] IMPRESSION: 1. No acute finding.
== END 2025-01-18 10:37 | disposition home or self-care (01) ==
PROVIDERS: PCP Nurse Practitioner; Visit Provider Internal Medicine
DX: K52.9 Noninfective gastroenteritis and colitis, unspecified (principal); Z90.49 Acquired absence of other specified parts of digestive tract; M43.27 Fusion of spine, lumbosacral region
CPT/HCPCS: 74018

== ENCOUNTER → 2025-04-09 16:02 | Outpatient (BNVA) | payer MEDICARE, MEDICAID, SELFPAY | PROVIDERS: PCP Nurse Practitioner; Visit Provider Nurse Practitioner | DX: E55.9 Vitamin D deficiency, unspecified (principal) | CPT/HCPCS: 80053; 82306; 82607; 85025 ==